=== PATIENT | female | born 1935 | race Caucasian/White ===

== ENCOUNTER → 2017-12-02 | Outpatient (CLI) | payer MEDICARE ==
[2017-12-02 10:02] LABS: PTH INTACT 35.7 pg/mL (14.0-72.0); VITAMIN D, 25-HYDROXY 21.7 ng/mL (30-100)
== END | disposition home or self-care (01) ==
LOC: LAB 08:44
PROVIDERS: Nurse Practitioner Family
DX: E83.51 Hypocalcemia (principal); E78.5 Hyperlipidemia, unspecified

== ENCOUNTER → 2018-07-18 | Outpatient (CLI) | payer MEDICARE ==
[~2018-07-18] MED LIST: LISINOPRIL10 M1 PO; LOPRESSOR25 MG PO; PRILOSEC20 M1 PO; Synthroid,Levo50 MCG PO; XARE20MG PO
--- NOTE | ~2018-07-18 | EKG ---
[place], [place] ELECTROCARDIOGRAM REPORT NAME: RANDAL CARRION UNIT #: [id number] ROOM: DOCTOR: EPIPHANY DRAFT REPORT BIRTHDATE: [birth year] [facility] Test Date: 2018-07-18 Test Time: 11:40:32 Pat Name: RANDAL CARRION Department: Room: Gender: F Fountain Dispenser: Elvia Coughlin : 1935 Requested By: PILAR SHANNON Order Number: [id number] Reading MD: Shari Vincent MD Measurements Intervals [place] Rate: 72 P: 55 MD: 154 QRS: 24 QRSD: 118 T: 11 QT: 391 QTc: 428 Interpretive Statements Sinus rhythm Incomplete right bundle branch block Electronically Signed On 07-18-2018 12:21:41 PST by Shari Vincent MD CM:EKGRPT:ELECTROCARDIOGRAM REPORT 1140 1221 PILAR SHANNON EPIPHANY DRAFT REPORT PILAR SHANNON
== END | disposition home or self-care (01) ==
LOC: CARD 11:02
DX: J44.9 Chronic obstructive pulmonary disease, unspecified (principal); E03.9 Hypothyroidism, unspecified; I10 Essential (primary) hypertension; R01.1 Cardiac murmur, unspecified; R53.83 Other fatigue

== ENCOUNTER 2018-07-21 18:24 | Inpatient (IN) | payer MEDICARE ==
[~2018-07-21] VITALS: Ht 152.4 cm; Wt 50.4 kg
[2018-07-21] VITALS (8 sets, daily range): BP systolic 148–177; BP diastolic 76–100
--- NOTE | ~2018-07-21 | EKG ---
[place], [place] ELECTROCARDIOGRAM REPORT NAME: RANDAL CARRION UNIT #: [id number] ROOM: 526 DOCTOR: MINISTERIO DRAFT REPORT BIRTHDATE: [birth year] [facility] Test Date: 2018-07-21 Test Time: 20:08:09 Pat Name: RANDAL CARRION Department: Room: 526 Gender: F Pump Tester: Arie Anthony : 1935 Requested By: AARON HYATT Order Number: [id number] Reading MD: Myrna Prescott Measurements Intervals [place] Rate: 73 P: 2 MS: 173 QRS: 5 QRSD: 116 T: 4 QT: 373 QTc: 411 Interpretive Statements Sinus rhythm Atrial premature complex Incomplete right bundle branch block Baseline wander in lead(s) V6 Compared to ECG 07/18/2018 11:40:32 Atrial premature complex(es) now present Electronically Signed On 07-28-2018 7:14:45 PST by Myrna Prescott CM:EKGRPT:ELECTROCARDIOGRAM REPORT 07 0714 TITUS GUARDADO DO and AARON MANDEL DRAFT REPORT AARON HYATT MD
--- NOTE | ~2018-07-21 | PR ---
[place], [place] PROGRESS NOTE NAME: RANDAL CARRION [facility] #: [id number] UNIT #: [id number] ROOM: 526 DOCTOR: ASHWIN QUINTERO MD BIRTHDATE: [birth year] DOS: 07/24/2018 CARDIOLOGY FOLLOWUP NOTE REASON FOR VISIT: The patient with new onset atrial fibrillation, hypertension, and valvular heart disease. HISTORY OF PRESENT ILLNESS: The patient is feeling better. Denies any chest pain, shortness of breath. No palpitation, no dizziness, no syncope, no nausea, vomiting. No bladder or bowel symptoms, no neurologic symptoms. REVIEW OF SYSTEMS: Review of 10 systems negative except as mentioned. PHYSICAL EXAMINATION: VITAL SIGNS: Blood pressure 138/59, pulse 60, respiratory rate 16, weight 50.3 kilos. GENERAL: Alert, comfortable, in no acute distress. NECK: Supple. No distended neck veins, no carotid bruit. CHEST: Symmetrical, nontender. LUNGS: Clear to auscultation bilaterally. HEART: Regular rhythm, no S3. Grade 3/6 systolic ejection murmur heard all over the precardium. No palpable thrills. ABDOMEN: Benign. Nontender. Bowel sounds normal. EXTREMITIES: Showed no edema. Distal pulses palpable. SKIN: Warm and dry. No cyanosis, no clubbing. RECTAL: Deferred. GENITOURINARY: Deferred. NEUROLOGIC: The patient is alert and oriented. No focal neurologic deficit. PSYCHIATRIC: The patient is alert with good mood and affect. Medications and labs reviewed. IMPRESSION: 1. New onset atrial fibrillation, currently sinus rhythm, CHADS2-VASc score of 4. 2. Accelerated hypertension, stable. 3. Chest pain, atypical. 4. Valvular heart disease, possible aortic stenosis based on examination. RECOMMENDATIONS: 1. Lexiscan stress test today. 2. A 2D echo is pending. 3. If the stress test, echo is unremarkable, she will be discharged home on oral anticoagulation. I would recommend either Xarelto 20 mg once daily or Eliquis 2.5 mg twice daily. The patient is agreeable. 4. If the 2D echo showed severe aortic stenosis, she will be referred to outpatient [facility]. The above treatment plan discussed with the patient and all questions were answered. [place], [place] PROGRESS NOTE NAME: RANDAL CARRION UNIT #: [id number] ROOM: 526 DOCTOR: ASHWIN QUINTERO MD BIRTHDATE: [birth year] ASHWIN QUINTERO MD CM:PNBALDO [id number] ASHWIN QUINTERO MD 07/25/18 0931 interface
--- NOTE | ~2018-07-21 | EKG ---
[place], [place] ELECTROCARDIOGRAM REPORT NAME: RANDAL CARRION UNIT #: [id number] ROOM: 526 DOCTOR: MINISTERIO DRAFT REPORT BIRTHDATE: [birth year] [facility] Test Date: 2018-07-21 Test Time: 21:43:36 Pat Name: RANDAL CARRION Department: Room: 526 Gender: F Thermocouple Tester: Arie Anthony : 1935 Requested By: TITUS GUARDADO Order Number: [id number] Reading MD: Myrna Prescott Measurements Intervals [place] Rate: 75 P: 38 CT: 180 QRS: 32 QRSD: 115 T: 19 QT: 360 QTc: 402 Interpretive Statements Sinus rhythm Incomplete right bundle branch block Compared to ECG 07/18/2018 11:40:32 No significant changes Electronically Signed On 07-28-2018 7:27:54 PST by Myrna Prescott CM:EKGRPT:ELECTROCARDIOGRAM REPORT 42 0727 TITUS GUARDADO DO and AARON HYATT MD EPIPHANY DRAFT REPORT TITUS GUARDADO DO
--- NOTE | ~2018-07-21 | EKG ---
[place], [place] ELECTROCARDIOGRAM REPORT NAME: RANDAL CARRION UNIT #: [id number] ROOM: 526 DOCTOR: MINISTERIO DRAFT REPORT BIRTHDATE: [birth year] [facility] Test Date: 2018-07-21 Test Time: 18:25:30 Pat Name: RANDAL CARRION Department: Room: 526 Gender: F Developing Machine Tender: Arie Anthony : 1935 Requested By: TITUS GUARDADO Order Number: [id number] Reading MD: Myrna Prescott Measurements Intervals [place] Rate: 163 P: WI: QRS: 25 QRSD: 105 T: -42 QT: 271 QTc: 447 Interpretive Statements Atrial fibrillation with rapid V-rate Abnormal R-wave progression, early transition Repolarization abnormality, prob rate related Compared to ECG 07/18/2018 11:40:32 Early repolarization now present Sinus rhythm no longer present Incomplete right bundle-branch block no longer present Electronically Signed On 07-28-2018 7:13:52 PST by Myrna Prescott CM:EKGRPT:ELECTROCARDIOGRAM REPORT 1825 0713 TITUS GRIMM DRAFT REPORT TITUS GUARDADO DO
--- NOTE | ~2018-07-21 | CON ---
[place], [place] REPORT OF CONSULTATION [id number] UN[facility] #: [id number] ROOM: 526 DOCTOR: ASHWIN QUINTERO MD BIRTHDATE: [birth year] DOS: 07/22/2018 REASON FOR CONSULT: Atrial fibrillation and chest pain. HISTORY OF PRESENT ILLNESS: The patient is an 82-year-old patient with history of hypothyroidism, presented to the Emergency Room for heart fluttering as well as some discomfort in the chest area as well as short of breath. This happened while she was walking in the driveway to get her mail. She denies any associated dizziness or syncope or chest pain. She describes there is tightness and also noted some discomfort in her jaw area. She complained of occasional heart fluttering for the past 6-7 years. Again, no associated dizziness or syncope. These symptoms last a few seconds, but for the past 1 month she is having more frequent fluttering which lasted longer. She was found to be in atrial fibrillation and rapid ventricular rate and she was treated intravenously with beta-doretha and the patient has converted to sinus rhythm. She returned to the hospital and Cardiology consulted because of her atrial fibrillation and also chest pain. At the time of examination, the patient is alert, oriented. Denies any chest pain, shortness of breath. No palpitation or dizziness. No PND or orthopnea. No nausea, vomiting, or diarrhea. No headaches. No tingling, numbness or weakness. No bladder or bowel symptoms. REVIEW OF SYSTEMS: Review of the 10 systems negative except as mentioned above. PAST MEDICAL HISTORY: Hypothyroidism and history of heart murmur. PAST SURGICAL HISTORY: History of hemorrhoidectomy and breast biopsy. SOCIAL HISTORY: The patient does not drink or use illicit drugs. She quit smoking long time ago. FAMILY HISTORY: Father and mother . ALLERGIES: No known drug allergies. HOME MEDICATIONS: Reviewed. PHYSICAL EXAMINATION: VITAL SIGNS: Blood pressure 170/80, pulse 73, respirations 16. GENERAL: The patient is alert, comfort, no acute distress. HEAD AND NECK: Pupils round, equal. No jaundice. Tongue was moist and pharynx was clear. NECK: Supple, no distended neck veins, no carotid bruit. CHEST: Symmetrical, nontender. LUNGS: Clear to auscultation bilaterally. HEART: Regular rhythm, no S3 and grade 3/6 systolic ejection murmur heard all over the precardium. No palpable thrills. ABDOMEN: Benign, nontender. Bowel sounds normal. EXTREMITIES: Showed no edema. Distal pulses palpable. SKIN: Warm and dry. No cyanosis, no clubbing. RECTAL: Deferred. [place], [place] REPORT OF CONSULTATION NAME: RANDAL CARRION UNIT #: [id number] ROOM: 526 DOCTOR: ASHWIN QUINTERO MD BIRTHDATE: [birth year] GENITOURINARY: Deferred. PSYCHIATRIC: The patient is alert, oriented with good mood and affect. REVIEW OF THE DIAGNOSTIC TESTS: EKG, rhythm strips and labs reviewed. Pertinent labs include cardiac troponins at 0.038, 0.059, 0.068, 0.048. White cell count 7.4 thousand, hemoglobin 14, platelet 137,000. Potassium 3.8, BUN 16, creatinine 0.75, magnesium 2.1. IMPRESSION: 1. New onset atrial fibrillation with rapid ventricular rate, the patient currently in sinus rhythm, CHADS2-VASc score at least 3 possibly 4 with hypertension. Risks, benefits of the oral anticoagulation discussed and the patient agreed to take oral anticoagulation. Continue Lovenox for now and based on her echo and also a Lexiscan stress test on Tuesday. We will start oral anticoagulation. 2. Chest pain, atypical. 3. Borderline elevation of troponin, likely due to demand ischemia from her tachycardia. 4. Heart murmur, possible aortic stenosis. A 2D echo was ordered and pending. 5. New onset hypertension, start low dose beta-doretha, metoprolol and watch her blood pressure and heart rates and adjust the medications as needed. The above treatment and plan was discussed with the patient and her family member who is at bedside and all questions answered. Plan is 2D echo and Lexiscan stress on Tuesday and based on that the oral anticoagulation will be initiated. If the stress test is abnormal, then she will be transferred to [facility] for cardiac catheterization. If the 2D echo showed severe significant aortic stenosis, then she will be referred to [facility] [place] [facility] clinic as outpatient. ASHWIN QUINTERO MD CM:CONSTR:REPORT OF CONSULTATION 01 09/05/18 0651 interface
--- NOTE | ~2018-07-21 | PR ---
[place], [place] PROGRESS NOTE NAME[facility]ION [id number] UNIT #: [id number] ROOM: 526 DOCTOR: ASHWIN QUINTERO MD BIRTHDATE: [birth year] DOS: 07/23/2018 CARDIOLOGY FOLLOWUP VISIT NOTE REASON FOR VISIT: Atrial fibrillation and hypertension and heart murmur. SUBJECTIVE: The patient is feeling better. Denies any chest pain or palpitations. Her breathing is much better. No PND, no orthopnea. No nausea, vomiting, diarrhea. No bladder or bowel symptoms, no neurologic symptoms. REVIEW OF SYSTEMS: Review of the 10-system negative except as mentioned above. RHYTHM STRIPS: The patient is in sinus rhythm. PHYSICAL EXAMINATION: VITAL SIGNS: Blood pressure 110/49, pulse 58, respirations 17, weight 50.7 kilos. GENERAL: Alert and comfortable, in no acute distress. HEENT: Pupils are round and equal. No jaundice. Tongue was moist and pharynx was clear. NECK: Supple, no distended neck veins, no carotid bruit. CHEST: Symmetrical, nontender. LUNGS: Clear to auscultation bilaterally. HEART: Regular rate and rhythm, no S3. Grade 3/6 systolic ejection murmur heard all over the precardium. No palpable thrills. ABDOMEN: Benign, nontender. Bowel sounds normal. EXTREMITIES: Showed trace edema. Distal pulses palpable. SKIN: Warm and dry. No cyanosis, no clubbing. RECTAL: Deferred. GENITOURINARY: Deferred. MEDICATIONS AND LABORATORIES: Reviewed. IMPRESSION: 1. New onset atrial fibrillation, currently sinus rhythm. CHADS2-VASc score of at least 3, possibly 4 with hypertension. 2. Significant heart murmur, possible aortic stenosis. 3. Atypical chest pain, myocardial infarction ruled out. 4. Labile hypertension. RECOMMENDATIONS: 1. Continue current medication as per 2D echo tomorrow. Check her LV function and valvular function to rule out thrombus. 2. Lexiscan stress test tomorrow to rule out ischemia. 3. A 2D echo unremarkable. If Lexiscan stress test negative, she can be discharged home tomorrow on oral anticoagulation, possibly I would start Eliquis. 4. If the stress test showed ischemia, then she will require cardiac catheterization, which will be performed on Tuesday at [facility]. 5. If she has severe valvular heart disease, then she will be referred to [place], [place] PROGRESS NOTE NAME: RANDAL CARRION UNIT #: [id number] ROOM: 526 DOCTOR: LEON DIEGO,ASHWIN BIRTHDATE: [birth year] [facility] Above treatment plan was discussed with the patient as well as her son, who is at bedside and all questions were answered. ASHWIN QUINTERO MD CM:PNTRANS [id number] ASHWIN QUINTERO MD 09/06/18 0746 interface
--- NOTE | ~2018-07-21 | EKG ---
[place], [place] ELECTROCARDIOGRAM REPORT NAME: RANDAL CARRION UNIT #: [id number] ROOM: 526 DOCTOR: MINISTERIO DRAFT REPORT BIRTHDATE: [birth year] [facility] Test Date: 2018-07-22 Test Time: 00:18:46 Pat Name: RANDAL CARRION Department: Room: 526 Gender: F Bank Messenger: Arie Anthony : 1935 Requested By: TITUS GUARDADO Order Number: [id number] Reading MD: Myrna Prescott Measurements Intervals [place] Rate: 68 P: 43 WA: 185 QRS: 31 QRSD: 118 T: 20 QT: 392 QTc: 417 Interpretive Statements Sinus rhythm Ventricular premature complex Incomplete right bundle branch block Compared to ECG 07/18/2018 11:40:32 Ventricular premature complex(es) now present Electronically Signed On 07-28-2018 11:49:19 PST by Myrna Prescott CM:EKGRPT:ELECTROCARDIOGRAM REPORT 0018 1149 TITUS GRIMM DRAFT REPORT TITUS GUARDADO DO
--- NOTE | ~2018-07-21 | ST ---
[place], [place] EXERCISE STRESS TEST REPORT NAME: RANDAL CARRION [facility] #: [id number] UNIT #: [id number] ROOM: 526 DOCTOR: LEON DIEGO,ASHWIN BIRTHDATE: [birth year] DOS: 07/24/2018 REASON FOR TEST: The patient ____ atrial fibrillation, hypertension, and valvular heart disease. PHYSICAL EXAMINATION NECK: Supple. LUNGS: Clear anteriorly. HEART: Regular rhythm, grade 3/6 systolic murmur. EXTREMITIES: Showed no edema. PROTOCOL: Lexiscan protocol. Maximum heart rate 96. Peak blood pressure 134/70. SYMPTOMS: The patient is chest pain free. EKG: Resting EKG showed sinus rhythm. Stress EKG showed no ischemia, no arrhythmias. CONCLUSION: Clinically, the patient is chest pain free. EKG nonischemic. POST-STRESS COMPLICATIONS: None. The patient received a total of 0.4 mg of Lexiscan. ASHWIN QUINTERO MD CM:STRESS:EXERCISE STRESS TEST REPORT [id number] 0359 ASHWIN QUINTERO MD
[2018-07-21 18:53] LABS: BASO # 0.1 10*3/uL (0.0-0.1); BASO % 0.9 % (0.0-1.0); EOS # 0.1 10*3/uL (0.0-0.4); EOS % 0.8 % (1.0-4.0); HEMATOCRIT 45.5 % (37.0-47.0); HEMOGLOBIN 15.6 g/dl (12.0-16.0); LYMPH # 2.2 10*3/uL (1.3-4.4); LYMPH % 24.2 % (27.0-41.0); MEAN CELL VOLUME 88.3 fl (81.0-99.0); MEAN CORPUSCULAR HGB 30.3 pg (27.0-31.0); MEAN CORPUSCULAR HGB CONC 34.3 g/dl (33.0-37.0); MEAN PLATELET VOLUME 12.1 fl (9.6-12.3); MONO # 0.9 10*3/uL (0.1-1.0); MONO % 10.4 % (3.0-9.0); NEUT # 5.6 10*3/uL (2.3-7.9); NEUT % 62.9 % (47.0-73.0); PLATELET COUNT AUTOMATED 202 10*3/uL (130-400); RED BLOOD COUNT 5.15 10*6/uL (4.10-5.10); RED CELL DISTRI WIDTH 13.1 % (0-14.5); WHITE BLOOD COUNT 8.9 10*3/uL (4.8-10.8)
--- NOTE | 2018-07-21 18:56 | NUR ---
DURING SLOW IV PUSH OF 2.5 MG IV LOPRESSOR,PTS HEARTRATE DROPPED GRADUALLY FROM 140 TO 100 THEN QUICKLY TO 40. IV LOPRESSOR PUSH STOPPED IMMEDIATELY. ONLY 1.5 MG IV LOPRESSOR WAS INJECTED TOTAL BEFORE DISCONTIUATION. DR GUARDADO MADE AWARE OF THIS. PT ALERT/ORIENTED X3.MONITOR IS NOW AFIB 80'S. NO PREVIOUS HX OF AFIB PER PT AND DAUGHTER---RILEY RIVERA RN
[2018-07-21 19:38] LABS: ACT PARTIAL THROMBO TIME 21.2 SECONDS (20.8-31.5)
[2018-07-21 19:39] LABS: ALBUMIN 3.5 gm/dl (3.1-4.5); ALKALINE PHOSPHATASE 96 U/L (45-117); BUN 12 mg/dl (7-24); CHLORIDE 105 mmol/L (98-107); CREATININE 0.72 mg/dL (0.55-1.02); POTASSIUM 3.6 mmol/L (3.5-5.1); SGOT/AST 19 IU/L (3-35); SGPT/ALT 19 U/L (12-78); SODIUM 135 mmol/L (136-145); TOTAL PROTEIN 7.2 gm/dL (6.4-8.2)
[2018-07-21 19:40] LABS: LIPASE 197 U/L (73-393); TROPONIN I 0.038 ng/ml (<0.045)
--- NOTE | 2018-07-21 21:40 | NUR ---
A 82, admitted to ICCU, under the services of JAMISON Tariq DO with a diagnosis of CHEST PAIN HYPERTENSIVE EMERGENCY NEW ONSET AFIB. Chief complaint is CHEST PAIN. Patient arrived via stretcher from ER. Monitor applied. Initial assessment completed. Vital signs taken and recorded. JAMISON TARIQ DO notified of admission to the unit. Orders received. See assessment for past medical history, medications and allergies. Patient and/or family oriented to unit. [facility] ICCU visitation policy reviewed. Clothing/patient valuable form completed. JACQUELYN MORALES
[2018-07-21] MEDS ORDERED: PRILOSEC20 M1 PO (21:56)
[2018-07-21] MEDS ORDERED: Synthroid,Levo50 MCG PO (21:57)
--- NOTE | 2018-07-21 22:07 | NUR ---
CONSULT CALLED TO DOCTOR JOSE RAFAEL HE WAS INFORMED OF ELEVATED TROPONINS AND HE ASKED IF PATIENT WAS ON LOVENOX 40 DAILY HE SAID OK WILL SEE TOMORROW. JOSE RAFAEL WAS INFORMED THAT PATIENT HAS CONVERTED TO NSR AND IS CURRENTLY 80 AT THIS TIME PATIENT DENIES CP CURRENTLY.
--- NOTE | 2018-07-21 22:45 | NUR ---
HOME MEDS UP TO DATE REVIEWED WITH THE PATIENT.
[2018-07-22] VITALS: BP 120/68
[2018-07-22 04:00] VITALS: BP 116/55
[2018-07-22 04:33] LABS: BASO # 0.1 10*3/uL (0.0-0.1); BASO % 0.9 % (0.0-1.0); EOS # 0.1 10*3/uL (0.0-0.4); EOS % 1.3 % (1.0-4.0); HEMATOCRIT 43.1 % (37.0-47.0); HEMOGLOBIN 14.6 g/dl (12.0-16.0); LYMPH % 26.9 % (27.0-41.0); MEAN CELL VOLUME 90.2 fl (81.0-99.0); MEAN CORPUSCULAR HGB 30.5 pg (27.0-31.0); MEAN CORPUSCULAR HGB CONC 33.9 g/dl (33.0-37.0); MEAN PLATELET VOLUME 11.5 fl (9.6-12.3); MONO # 0.8 10*3/uL (0.1-1.0); MONO % 10.9 % (3.0-9.0); NEUT # 4.4 10*3/uL (2.3-7.9); NEUT % 59.5 % (47.0-73.0); PLATELET COUNT AUTOMATED 173 10*3/uL (130-400); RED BLOOD COUNT 4.78 10*6/uL (4.10-5.10); RED CELL DISTRI WIDTH 13.1 % (0-14.5); WHITE BLOOD COUNT 7.4 10*3/uL (4.8-10.8)
[2018-07-22 05:05] LABS: ALBUMIN 3.3 gm/dl (3.1-4.5); ALKALINE PHOSPHATASE 91 U/L (45-117); BUN 16 mg/dl (7-24); CHLORIDE 105 mmol/L (98-107); CHOLESTEROL 197 mg/dL (<200); CREATININE 0.75 mg/dL (0.55-1.02); FREE T4 1.27 ng/dl (0.76-1.46); HDL CHOLESTEROL 84 mg/dl (40-60); LDL CHOLESTEROL 99 mg/dL (9-159); PHOSPHOROUS 3.7 mg/dL (2.5-4.9); POTASSIUM 3.8 mmol/L (3.5-5.1); SGOT/AST 19 IU/L (3-35); SGPT/ALT 19 U/L (12-78); SODIUM 137 mmol/L (136-145); TOTAL PROTEIN 6.6 gm/dL (6.4-8.2); TRIGLYCERIDES 68 mg/dl (<150); VLDL CHOLESTEROL 14 mg/dL (6-40)
[2018-07-22 08:00] VITALS: BP 156/71
--- NOTE | 2018-07-22 08:00 | NUR ---
RESTING IN BED, DENIES ANY COMPLAINTS OF CHEST PAIN OR SHORTNESS OF BREATH. PULSE OX 97% ON ROOM AIR. LUNGS CLEAR BILATERALLY. NO EDEMA NOTED. HEP LOCK INTACT TO RAN AND BLANCHE.
[2018-07-22 12:00] VITALS: BP 170/86
--- NOTE | 2018-07-22 14:06 | NUR ---
TRANSFERRED TO ROOM 526 VIA BED. REPORT GIVEN TO RN
[2018-07-22 16:00] VITALS: BP 135/65
[2018-07-22 20:00] VITALS: BP 108/58; BP 112/64
--- NOTE | 2018-07-22 21:01 | NUR ---
NOTIFIED DR. PIMENTEL AT THIS TIME THAT PATIENT HAD A "FUNNY FEELING" IN HER CHEST FOLLOWED BY A QUICK FEELING OF NUMBNESS IN HER LEFT HAND THAT QUICKLY WENT AWAY. PATIENT STILL NORMAL SINUS RHYTHM IN THE 70'S, WAS IN 60'S WHILE SLEEPING. CALL LIGHT WITHIN REACH, WILL MONITOR
--- NOTE | 2018-07-22 21:30 | NUR ---
PRN RESTORIL GIVEN FOR PT COMPLAINTS OF ANXIETY AND SLEEPLESSNESS. STATES SHES NOT USED TO BEING SICK. CALL LIGHT WITHIN REACH, WILL MONITOR
[2018-07-23] VITALS: BP 110/68
--- NOTE | 2018-07-23 07:26 | NUR ---
PT SITTING UP IN BED. NO DISTRESS NOTED WILL MONITOR
[2018-07-23 08:00] VITALS: BP 158/64
[2018-07-23 12:00] VITALS: BP 110/49
[2018-07-23 16:00] VITALS: BP 100/48
[2018-07-23 20:00] VITALS: BP 105/44
--- NOTE | 2018-07-23 21:15 | NUR ---
MEDICATED WITH RESTORIL PER PRN ORDER FOR C/O INSOMNIA.
[2018-07-24] VITALS: BP 138/59
--- NOTE | 2018-07-24 00:35 | NUR ---
PT RESTING IN BED WITH EYES CLOSED, AWAKENS EASILY. RESP-EASY AND REGULAR. NO C/O AT THIS TIME. CALL LIGHT IN REACH. SEE SHIFT ASSESSMENT.
--- NOTE | 2018-07-24 04:00 | NUR ---
RESTING IN BED WITH EYES CLOSED. RESP-EASY AND REGULAR. CALL LIGHT IN REACH.
--- NOTE | 2018-07-24 05:15 | NUR ---
SLEEPING IN BED, AWAKENS EASILY. TOLERATED ROUTINE MED WITH SIP OF WATER. NO C/O AT THIS TIME. CALL LIGHT IN REACH.
--- NOTE | 2018-07-24 09:45 | NUR ---
case management was informed that patient may go home on xeralto 20mg daily, called [facility] pharmacy, spoke to pharmacist. he will check on cost and any copay for patient and call case management with details.
--- NOTE | 2018-07-24 10:00 | NUR ---
SENT TO [facility] TESTING FOR STRESS TEST
--- NOTE | 2018-07-24 10:20 | NUR ---
INFORMED SIGNED CONSENT OBTAINED FOR LEXISCAN STRESS TEST WITH DR QUINTERO. RESTING EKG NSR HR 67 INCOMPLETE RBBB. PULSE OX 99% LUNGS CLEAR. PT COMPLETED ONE MINUTE OF A LEXISCAN PROTOCOL WITH PT RECEIVING LEXISCAN 0.4MG IV OVER 10 SECONDS[address] NO ARRHYTHMIAS OR ST CHANGES NOTED. PT C/O FEELING DIZZY WITH INJECTION. LAST RECOVERY HR OF 93 BP 130/64. PT IN STABLE CONDITION, AWAITING NUCLEAR IMAGES.
--- NOTE | 2018-07-24 10:41 | NUR ---
SPOKE WITH VIKTORIA FROM [facility], STATES PT HAS NO INSURANCE CARD LISTED AND THAT XERALTO WOULD BE AROUND 500.00 DOLLARS. HOSPITALIST NURSE DIRECTOR NOTIFIED.
--- NOTE | 2018-07-24 11:29 | NUR ---
Manager Of Pharmacy in to talk to patient. Patient states lives at HOME with . There are NO steps in the home. Physician: Jennifer SHANNON Pharmacy: [facility] [place] health services: NONE Patient's level of ADLs: INDEPENDENT Patient has working utilities: YES DME: NONE Follow-up physician's appointment after d/c: WILL BE MADE BY HOSPITALIST NURSE DIRECTOR ON DISCHARGE Does patient want to access PORTAL?: NO Discharge plan PT LIVES AT HOME WITH AND IS NORMALLY INDEPENDENT IN CARE. DAUGHTER IN ROOM AND STATES HER MOTHER IS VERY INDEPENDENT AND ACTIVE.. PT IS HAVING A STRESS TEST TODAY AND DAUGHTER STATES THE DOCTOR TOLD THEM THAT PT WOULD EITHER BE DISCHARGED HOME OR GO TO [facility] ON STRESS TEST. WILL CONTINUE TO FOLLOW. AISLINN KNOX
[2018-07-24 12:00] VITALS: BP 143/63
--- NOTE | 2018-07-24 14:52 | NUR ---
notified cardiology of issue with xarelto and eliquis, dr. maier would like xarelto 20mg daily
[2018-07-24] MEDS ORDERED: XARE20MG PO (15:08)
[2018-07-24] MEDS ORDERED: LISINOPRIL10 M1 PO (15:08)
[2018-07-24] MEDS ORDERED: LOPRESSOR25 MG PO (15:08)
[2018-07-24 16:00] VITALS: BP 152/64
--- NOTE | 2018-07-24 16:54 | NUR ---
Discharge instructions reviewed with patient/family. Patient receptive and verbalizes understanding. Follow-up care arranged AND UNDERSTOOD TO CALL FOR APPOINTMENT WITH PRIMARY CARE, UNDERSTANDS [facility] FOLLOW UP AND TO FOLLOW UP WITH CARDIOLOGY, PER DR. QUINTERO HIS OFFICE WILL CALL WITH A FOLLOW UP APPOINTMENT. Written instructions given to patient/family. IV REMOVED, TELE REMOVED. PT DISCHARGED VIA WHEELCHAIR BEV MANZANARES
[2018-10-25] MEDS ORDERED: LEVOTHYROXINE50 MCG PO (13:24)
[2018-10-26] MEDS ORDERED: ESCITALOPRAM OX10 MG PO (11:52)
== END 2018-07-24 16:54 | disposition home or self-care (01) | DRG 309 ==
LOC: ED 18:24 → 5E 20:21 → EDHOLD 20:21 → 5E 21:01 → ICCU 21:12 → 5E 07-22 13:59
PROVIDERS: Emergency Medicine; Family Medicine; ADMIT Internal Medicine
PROC: 3E073KZ Introduction of Other Diagnostic Substance into Coronary Artery, Percutaneous Approach (ICD-10-PCS; principal; 2018-07-24)
PROC: 4A02XM4 Measurement of Cardiac Total Activity, External Approach (ICD-10-PCS; principal; 2018-07-24)
DX: I48.91 Unspecified atrial fibrillation (principal); R65.10 Systemic inflammatory response syndrome (SIRS) of non-infectious origin without acute organ dysfunction; E87.1 Hypo-osmolality and hyponatremia; E44.1 Mild protein-calorie malnutrition; I08.0 Rheumatic disorders of both mitral and aortic valves; R73.9 Hyperglycemia, unspecified; R74.8 Abnormal levels of other serum enzymes; R00.1 Bradycardia, unspecified; E03.9 Hypothyroidism, unspecified; I10 Essential (primary) hypertension; Z87.891 Personal history of nicotine dependence; Z79.899 Other long term (current) drug therapy; Z68.21 Body mass index [BMI] 21.0-21.9, adult

== ENCOUNTER 2018-08-23 10:47 | Emergency (ER) | payer MEDICARE ==
[~2018-08-23] VITALS: Ht 144.7 cm; Wt 49.9 kg
--- NOTE | ~2018-08-23 | EKG ---
[place], [place] ELECTROCARDIOGRAM REPORT NAME: RANDAL CARRION UNIT #: [id number] ROOM: DOCTOR: MINISTERIO DRAFT REPORT BIRTHDATE: [birth year] [facility] Test Date: 2018-08-23 Test Time: 10:56:28 Pat Name: RANDAL CARRION Department: Room: Gender: F Bariatric Program Coordinator: : 1935 Requested By: TITUS GUARDADO Order Number: [id number] Reading MD: Gabo Vuong MD Measurements Intervals [place] Rate: 75 P: 13 VT: 171 QRS: 10 QRSD: 116 T: 13 QT: 394 QTc: 441 Interpretive Statements Sinus rhythm Incomplete right bundle branch block Compared to ECG 07/22/2018 00:18:46 Ventricular premature complex(es) no longer present Electronically Signed On 08-25-2018 13:53:11 PDT by Gabo Vuong MD CM:EKGRPT:ELECTROCARDIOGRAM REPORT [id number] 1353 TITUS GRIMM DRAFT REPORT TITUS GUARDADO DO
[2018-08-23 11:23] LABS: BASO # 0.1 10*3/uL (0.0-0.1); BASO % 0.8 % (0.0-1.0); EOS # 0.1 10*3/uL (0.0-0.4); EOS % 0.5 % (1.0-4.0); HEMATOCRIT 39.9 % (37.0-47.0); HEMOGLOBIN 13.7 g/dl (12.0-16.0); LYMPH # 1.1 10*3/uL (1.3-4.4); LYMPH % 11.9 % (27.0-41.0); MEAN CELL VOLUME 88.1 fl (81.0-99.0); MEAN CORPUSCULAR HGB 30.2 pg (27.0-31.0); MEAN CORPUSCULAR HGB CONC 34.3 g/dl (33.0-37.0); MEAN PLATELET VOLUME 10.8 fl (9.6-12.3); MONO # 0.9 10*3/uL (0.1-1.0); MONO % 9.3 % (3.0-9.0); NEUT # 7.3 10*3/uL (2.3-7.9); NEUT % 76.6 % (47.0-73.0); PLATELET COUNT AUTOMATED 208 10*3/uL (130-400); RED BLOOD COUNT 4.53 10*6/uL (4.10-5.10); RED CELL DISTRI WIDTH 12.9 % (0-14.5); WHITE BLOOD COUNT 9.5 10*3/uL (4.8-10.8)
[2018-08-23 11:30] LABS: ACT PARTIAL THROMBO TIME 24.2 SECONDS (20.8-31.5)
[2018-08-23 11:59] LABS: ALBUMIN 3.2 gm/dl (3.1-4.5); ALKALINE PHOSPHATASE 116 U/L (45-117); BUN 14 mg/dl (7-24); CHLORIDE 97 mmol/L (98-107); CREATININE 0.63 mg/dL (0.55-1.02); LIPASE 153 U/L (73-393); POTASSIUM 4.1 mmol/L (3.5-5.1); SGOT/AST 18 IU/L (3-35); SGPT/ALT 16 U/L (12-78); SODIUM 129 mmol/L (136-145); TOTAL PROTEIN 6.8 gm/dL (6.4-8.2); TROPONIN I 0.022 ng/ml (<0.045)
[2018-10-25] MEDS ORDERED: LEVOTHYROXINE50 MCG PO (13:24)
[2018-10-26] MEDS ORDERED: ESCITALOPRAM OX10 MG PO (11:52)
== END 2018-08-23 15:30 | disposition short-term general hospital (02) ==
LOC: ED 10:47
PROVIDERS: Emergency Medicine
DX: G45.9 Transient cerebral ischemic attack, unspecified (principal); E03.9 Hypothyroidism, unspecified; Z87.891 Personal history of nicotine dependence

== ENCOUNTER → 2018-10-10 | Outpatient (CLI) | payer MEDICARE ==
[~2018-10-10] MED LIST changes: +ESCITALOPRAM OX10 MG PO; +HYDROCODONE-AC1 EAC1 PO; +LEVOTHYROXINE50 MCG PO; +NORVASC5 MG PO; +TRAMADOL HCL50 MG PO; +TYLENOL EXTRA500 MG PO
[2018-10-10 14:29] LABS: BASO # 0.1 10*3/uL (0.0-0.1); EOS # 0.1 10*3/uL (0.0-0.4); EOS % 0.7 % (1.0-4.0); HEMATOCRIT 41.1 % (37.0-47.0); HEMOGLOBIN 13.4 g/dl (12.0-16.0); LYMPH # 1.9 10*3/uL (1.3-4.4); LYMPH % 23.6 % (27.0-41.0); MEAN CELL VOLUME 89.2 fl (81.0-99.0); MEAN CORPUSCULAR HGB 29.1 pg (27.0-31.0); MEAN CORPUSCULAR HGB CONC 32.6 g/dl (33.0-37.0); MEAN PLATELET VOLUME 11.5 fl (9.6-12.3); MONO # 0.9 10*3/uL (0.1-1.0); MONO % 11.5 % (3.0-9.0); NEUT # 5.1 10*3/uL (2.3-7.9); NEUT % 62.2 % (47.0-73.0); PLATELET COUNT AUTOMATED 164 10*3/uL (130-400); RED BLOOD COUNT 4.61 10*6/uL (4.10-5.10); RED CELL DISTRI WIDTH 13.9 % (0-14.5); WHITE BLOOD COUNT 8.2 10*3/uL (4.8-10.8)
[2018-10-10 14:57] LABS: ALBUMIN 3.6 gm/dl (3.1-4.5); CREATININE 1.29 mg/dL (0.55-1.02); POTASSIUM 4.5 mmol/L (3.5-5.1); TOTAL PROTEIN 7.6 gm/dL (6.4-8.2)
[2018-10-10 15:04] LABS: THYROID STIM HORMONE (HS) 3.64 uIU/ml (0.358-4.75)
== END | disposition home or self-care (01) ==
LOC: LAB 13:19
PROVIDERS: Internal Medicine Cardiovascular Disease
DX: R53.83 Other fatigue (principal); R42 Dizziness and giddiness

== ENCOUNTER 2018-12-12 10:33 | Inpatient (IN) | payer MEDICARE ==
[~2018-12-12] VITALS: Ht 144.8 cm; Wt 52.2 kg
[~2018-12-12 10:33] MED LIST changes: -HYDROCODONE-AC1 EAC1 PO; -NORVASC5 MG PO; -TRAMADOL HCL50 MG PO; -TYLENOL EXTRA500 MG PO
[2018-12-12 10:34] VITALS: BP 156/68
[2018-12-12 11:07] LABS: BILIRUBIN 1+ (NEGATIVE); BLOOD NEGATIVE (NEGATIVE); CLARITY SL CLOUDY (CLEAR); COLOR YELLOW (YELLOW); GLUCOSE NEGATIVE (NEGATIVE); KETONE 1+ (NEGATIVE); LEUKO ESTERASE NEGATIVE (NEGATIVE); NITRITE NEGATIVE (NEGATIVE); SPECIFIC GRAVITY 1.025 (1.005-1.030)
[2018-12-12 11:22] LABS: BACTERIA 1+
[2018-12-12 12:00] VITALS: BP 152/58
[2018-12-12 12:37] LABS: BASO # 0.1 10*3/uL (0.0-0.1); BASO % 0.5 % (0.0-1.0); EOS % 0.2 % (1.0-4.0); HEMATOCRIT 37.5 % (37.0-47.0); HEMOGLOBIN 12.1 g/dl (12.0-16.0); LYMPH # 1.1 10*3/uL (1.3-4.4); LYMPH % 10.5 % (27.0-41.0); MEAN CORPUSCULAR HGB 28.4 pg (27.0-31.0); MEAN CORPUSCULAR HGB CONC 32.3 g/dl (33.0-37.0); MEAN PLATELET VOLUME 10.7 fl (9.6-12.3); MONO # 0.9 10*3/uL (0.1-1.0); MONO % 8.8 % (3.0-9.0); NEUT # 7.9 10*3/uL (2.3-7.9); NEUT % 79.2 % (47.0-73.0); PLATELET COUNT AUTOMATED 214 10*3/uL (130-400); RED BLOOD COUNT 4.26 10*6/uL (4.10-5.10); RED CELL DISTRI WIDTH 14.2 % (0-14.5)
[2018-12-12 12:52] LABS: ALBUMIN 3.4 gm/dl (3.1-4.5); ALKALINE PHOSPHATASE 180 U/L (45-117); BUN 20 mg/dl (7-24); CHLORIDE 101 mmol/L (98-107); CREATININE 0.83 mg/dL (0.55-1.02); POTASSIUM 3.6 mmol/L (3.5-5.1); SGOT/AST 25 IU/L (3-35); SGPT/ALT 21 U/L (12-78); SODIUM 133 mmol/L (136-145)
[2018-12-12 14:02] VITALS: BP 176/69
--- NOTE | 2018-12-12 14:10 | NUR ---
Time: 1409 A 83 year old FEMALE admitted to 5E under services of JAMISON TARIQ DO. Pt. arrived via stretcher from ER. Chief complaint: BACK PAIN . VASQUEZ PATRICK
[2018-12-12] MEDS ORDERED: PRILOSEC20 M1 PO (14:25)
--- NOTE | 2018-12-12 15:38 | NUR ---
PT MEDICATED WITH NORCO AND FLEXERIL FOR C/O BACK PAIN PT RATES PAIN 01/20 WILL MONITOR
--- NOTE | 2018-12-12 16:59 | NUR ---
PT RESTING IN BED, EYES CLOSED. NORCO AND FLEXERIL APPEAR EFFECTIVE,. WILL MONITOR
[2018-12-12 20:00] VITALS: BP 157/69
--- NOTE | 2018-12-12 20:10 | NUR ---
RESTING IN BED WITH EYES CLOSED, AWAKENS EASILY. RESP-EASY AND REGULAR. NO C/O AT THIS TIME. CALL LIGHT IN REACH. SEE SHIFT ASSESSMENT.
--- NOTE | 2018-12-12 22:00 | NUR ---
TOLERATED ROUTINE MED WITH NO PROBLEM. C/O BACK PAIN ,RATES PAIN 5 ON PAIN SCALE 0-10. MEDICATED WITH NORCO PO PER PRN ORDER, SEE EMAR. CALL LIGHT IN REACH.
--- NOTE | 2018-12-12 22:35 | NUR ---
STATES PAIN MEDICATION AND OINTMENT IS HELPING SOME. CALL LIGHT IN REACH. BED ALARM ON.
[2018-12-13] VITALS: BP 135/59
--- NOTE | 2018-12-13 00:20 | NUR ---
PT RESTING IN BED WITH EYES CLOSED. RESP-EASY AND REGULAR. NO C/O AT THIS TIME. CALL LIGHT IN REACH. SEE SHIFT ASSESSMENT.
--- NOTE | 2018-12-13 04:00 | NUR ---
SLEEPING IN BED. RESP-EASY AND REGULAR. CALL LIGHT IN REACH.
--- NOTE | 2018-12-13 06:00 | NUR ---
SLEEPING IN BED. RESP-EASY AND REGULAR. CALL LIGHT IN REACH.
--- NOTE | 2018-12-13 07:23 | NUR ---
PT RESTING IN BED AT THIS TIME WITH COMPLAINTS OF PAIN IN THE LEFT LOWER BACK/HIP. SHE STATES IT IS AN 8/10 WITH MOVEMENT AND THAT IF SHE LAYS STILL THE PAIN IS BARELY THERE. PRN ORDER FOR NORCO GIVEN AT THIS TIME. WILL MONITOR FOR EFFECTIVENESS OF MEDICATION. PT DENIES ANY OTHER NEEDS AT THIS TIME
[2018-12-13 07:27] LABS: BASO # 0.1 10*3/uL (0.0-0.1); EOS # 0.1 10*3/uL (0.0-0.4); EOS % 0.7 % (1.0-4.0); HEMATOCRIT 36.4 % (37.0-47.0); HEMOGLOBIN 11.8 g/dl (12.0-16.0); LYMPH # 1.1 10*3/uL (1.3-4.4); MEAN CELL VOLUME 89.4 fl (81.0-99.0); MEAN CORPUSCULAR HGB CONC 32.4 g/dl (33.0-37.0); MEAN PLATELET VOLUME 11.2 fl (9.6-12.3); MONO # 0.8 10*3/uL (0.1-1.0); MONO % 11.4 % (3.0-9.0); NEUT # 4.9 10*3/uL (2.3-7.9); PLATELET COUNT AUTOMATED 220 10*3/uL (130-400); RED BLOOD COUNT 4.07 10*6/uL (4.10-5.10); RED CELL DISTRI WIDTH 14.1 % (0-14.5)
[2018-12-13 07:55] LABS: BUN 15 mg/dl (7-24); CHLORIDE 103 mmol/L (98-107); CREATININE 0.64 mg/dL (0.55-1.02); POTASSIUM 3.6 mmol/L (3.5-5.1); SGOT/AST 24 IU/L (3-35); SGPT/ALT 18 U/L (12-78); SODIUM 136 mmol/L (136-145); TOTAL PROTEIN 6.5 gm/dL (6.4-8.2)
[2018-12-13 07:56] LABS: ALKALINE PHOSPHATASE 164 U/L (45-117)
[2018-12-13 08:00] VITALS: BP 154/70
--- NOTE | 2018-12-13 08:26 | NUR ---
Nursing screen received and Occupational THerapy evaluation received. Thank you. Sarahy Summers OTr/L
--- NOTE | 2018-12-13 08:44 | NUR ---
PT STATES NORCO WAS EFFECTIVE.
--- NOTE | 2018-12-13 11:41 | NUR ---
Formula Mixer in to talk to patient. Patient states lives at HOME with ALONE. There are NO steps in the home. Physician: PILAR SHANNON Pharmacy: [facility] Home health services: NONE Patient's level of ADLs: INDEPENDENT Patient has working utilities: YES DME: [facility] [facility] Follow-up physician's appointment after d/c: WILL BE MADE BY HOSPITALIST NURSE DIRECTOR ON DISCHARGE Does patient want to access PORTAL?: NO Discharge plan PT LIVES AT HOME ALONE WITH HER DAUGHTER LIVING CLOSE AND CHECKING ON HER. PT STATES SHE IS NORMALLY ABLE TO TAKE CARE OF HER DAILY NEEDS. SHE HAS A WALKER AND CANE AT HOME. TALKED WITH PT AND DAUGHTER ABOUT HOME HEALTH AND SNF STAY. THEY PREFER PT TO GO HOME WITH [facility] OR GO TO OUTPT THERAPY THEY DECLINE SNF. WILL CONTINUE TO FOLLOW. WILL HAVE RIDE PER DAUGHTER.. AISLINN KNOX
--- NOTE | 2018-12-13 12:11 | NUR ---
PRN ORDER FOR AGGIE REQUESTED AND RECIEVED FOR COMPLAINTS OF PAIN IN HER BACK AND LEFT HIP AREA THAT SHE RATES A 5/10. WILL MONITOR FOR EFEFCTIVENESS OF MEDICATION.
--- NOTE | 2018-12-13 13:30 | NUR ---
PHYSICAL THERAPY Patient evaluated on 5, full evaluation to follow. Continue with PT as per plan of care with fall, BACK PAIN and acute debility precautions. HOME WITH HOME HEALTH RN, PT AND AIDES PRN. PAtient is moderate complexity via chart review, tests and evaluation: 79887. Thank you for this referral. Sandra Heredia,PT
--- NOTE | 2018-12-13 13:30 | NUR ---
NORCO EFFECTIVE PER PT
[2018-12-13 16:00] VITALS: BP 136/56
--- NOTE | 2018-12-13 16:21 | NUR ---
Occupational Therapy evaluation completed on 5 with full eval to follow. Precautions include fall risk, bed alarm, new ww use, low back pain, moderate complexity level 94183 via chart review, testing and evaluation. Recommend OT per POC and return home with home health SN,OT,PT,[employer]. Thank you for this referral. Sarahy Summers Otr/l
--- NOTE | 2018-12-13 17:24 | NUR ---
PRN ORDER FOR AGGIE REQUESTED AND RECIEVED FOR C/O PAIN TO LEFT BACK & HIP. SHE RATES THE PAIN A 6/10. WILL MONITOR FOR EFFECTIVENESS.
--- NOTE | 2018-12-13 18:48 | NUR ---
NORCO EFFECTIVE. PT ASLEEP IN BED AT THIS TIME WITH NO S/S OF PAIN OR DISCOMFORT. WILL CONTINUE TO MONITOR PT.
[2018-12-13 20:00] VITALS: BP 124/50
--- NOTE | 2018-12-13 23:59 | NUR ---
PATIENT MEDICATED WITH NORCO PER PRN ORDER FOR C/O BACK AND LEG PAIN. RATED PAIN A 10/10 WITH 10 BEING THE WORST. SEE EMAR. REINFORCED USE OF CALL LIGHT
[2018-12-14] VITALS: BP 155/64
--- NOTE | 2018-12-14 07:30 | NUR ---
ASSUMED CARE FOR PT FROM TECHNICAL WRITING LEAD/MGR RN. PT IS RESTING IN BED AT THIS TIME AND DENIES ANY NEEDS. BED LOCKED AND IN THE LOWEST POSITION, CALL LIGHT WITHIN REACH. WILL CONTINUE TO MONITOR PT.
[2018-12-14 08:00] VITALS: BP 160/58; BP 172/62
--- NOTE | 2018-12-14 09:40 | NUR ---
PHYSICAL THERAPY Patient seen this am 1:1 for therapy visit and was supine in bed upon therapist arrival. Patient reports 10/10 LBP when attempting to sit up in bed, however pain suddenly drops to 4/10 once EOB sit. Patient instructed to reduce / eliminate trunk rotation and completes supine to to sit transfer with Min A. Patient transfers sit to stand, CGA and ambulates with use of wh walker, CGA, 50'x 1, demonstrating slow antalgic gait pattern secondary to c/o L hip pain. Patient returned to bedside chair and following brief seated rest performed seated B LE therex, all planes x 15 reps each without c/o. Patient remained in chair with call light, tray table, telephone and body alarm for safety. Will continue per POC as tolerated, total treatment time 23 minutes. Shabbir Hays, DIGITAL PHOTOGRAPHIC PRINTER
--- NOTE | 2018-12-14 10:05 | NUR ---
OT NOTE Pt was seen this A.M. 1:1 for 20 minute OT session. Upon arrival pt was supine in bed. Pt identified by name and and had complaints of 0/10 back pain at rest and 10/10 with activity. Pt was educated on back protection and bed mobility with good back protection. She then transferred supine to sit EOB with Danny for assist with UB with good carry over of back protection. While sitting EOB pt doffed and donned B socks with SBA with good carry over of compensatory technique. Sit to stand completed from bed level with CGA followed by functional mobility to the bathroom and back with CGA and use of w/w. Throughout mobility pt was twisting her back during turns with reports of 10/10 back pain. Educated and demonstrated safe turning technique to decrease risk of falls and decrease back pain. Pt had good carry over throughout. Pt then returned to the recliner where she was left sitting upright with call light in hand, tray table in place, and body alarm on for safety. Continue with rec D/C plan to home with home health. JOE Laughlin/Maddie
[2018-12-14 12:00] VITALS: BP 178/80
--- NOTE | 2018-12-14 12:02 | NUR ---
DR. LAMBERT NOTIFIED OF ELEVATED BP OF 178/80 MANUALLY. NO NEW ORDERS GIVEN AT THIS TIME, HE STATES HE WILL TAKE A LOOK AT IT. WILL CONTINUE TO MONITOR PT.
--- NOTE | 2018-12-14 12:17 | NUR ---
PRN ORDER FOR NORCO REQUESTED AND RECIEVED FOR COMPLAINTS OF 6/10 PAIN IN HER LEFT BACK/HIP. ALSO REQUESTED DULCOLAX FOR COMPLAINTS OF CONSTIPATION. WILL MONITOR FOR EFFECTIVENESS OF MEDICATIONS.
--- NOTE | 2018-12-14 13:50 | NUR ---
NORCO EFFECTIVE. PT RESTING IN BED WITH HER EYES CLOSED. NO OBVIOUS S/S OF PAIN OR DISCOMFORT. WILL CONTINUE TO MONITOR.
[2018-12-14 16:00] VITALS: BP 190/74
--- NOTE | 2018-12-14 16:50 | NUR ---
MEDICATED WITH PRN PO NORCO FOR LOW BACK AND LEFT HIP PAIN, ALSO MILK OF MAGNESIA FOR CONSTIPATION.
--- NOTE | 2018-12-14 17:47 | NUR ---
PRN PO NORCO EFFECTIVE, PER PATIENT.
[2018-12-14 19:25] VITALS: BP 138/74
[2018-12-14 20:00] VITALS: BP 139/63
[2018-12-15] VITALS: BP 161/68
--- NOTE | 2018-12-15 07:38 | NUR ---
PHYSICAL THERAPY Nursing screen received. PT orders also received. Thank you. Sandra Heredia,PT
[2018-12-15 08:00] VITALS: BP 160/64
[2018-12-15] MEDS ORDERED: NORVASC5 MG PO (10:49)
--- NOTE | 2018-12-15 10:55 | NUR ---
PHYSICAL THERAPY Patient seen this am 1;1 for therapy visit and was sitting in bedside chair upon therapist arrival. Patient voices mild c/o low back stiffness / chronic pain which tends to increase during prolonged standing activities. Patient instructed on HEP and performed seated B LE therex, all planes, 2 x 10 each to increase LE strength. Patient demonstrated and voiced good understanding of all ex and then transfers sit to stand CGA, ambulating 15'x 1, wh walker, CGA to EOB sit. Patient returned to bed SBA and remained with call light, tray table, telephone and bed alarm activated. Will continue per POC as tolerated, total treatment time 16 minutes. Shabbir Hyas, PRODUCTION ASSOCIATE
[2018-12-15] MEDS ORDERED: TYLENOL EXTRA500 MG PO (10:56)
--- NOTE | 2018-12-15 11:15 | NUR ---
OT NOTE Pt was seen this A.M. 1:1 for 15 minute OT session. Upon arrival pt was supine in bed. Pt identified by name and and had no complaints at this time. Pt transferred supine to sit EOB with SBA and good carry over of back protection throughout. Sit to stand completed from bed level with CGA and use of w/w for UE support. Functional mobility then completed into the bathroom with CGA and use of w/w. There pt transferred on/off standard commode with SBA and use of grab bar. Clothing management completed with CGA for safety. Pt then stood sink side while washing her hands with SBA. throughout pt had good carry over with good walker safety and back protection. Pt then transferred back into bed sit to supine with SBA. There she was left with call light in hand, tray table in place, and bed alarm activated for safety. Continue with rec D/C plan to home with home health. JOE Laughlin/Maddie
[2018-12-15 12:00] VITALS: BP 150/74
--- NOTE | 2018-12-15 13:20 | NUR ---
Discharge instructions reviewed with patient/family. Patient receptive and verbalizes understanding. Follow-up care arranged. Written instructions given to patient/family. MARLA DUGGAN
--- NOTE | 2018-12-15 13:25 | NUR ---
PHYSICAL THERAPY CO-SIGN I approve of the Phyical Therapy notes written above. CHRISTIAN NUR PT
--- NOTE | 2018-12-15 13:25 | NUR ---
CALLED FRANCISCO AT [facility] AND INFORMED HER PT WILL NOT BE DISCHARGED UNTIL TUESDAY PER DR MOSS.
--- NOTE | 2018-12-15 13:26 | NUR ---
CALLED DR MOSS AND INFORMED HIM I NEED A FACE TO FACE SHEET AND ORDER FOR HOME HEALTH FOR PT.
--- NOTE | 2018-12-15 14:00 | NUR ---
REFERRAL FAXED TO [facility].
--- NOTE | 2018-12-18 16:44 | NUR ---
OCCUPATIONAL THERAPY CO-SIGN I approve of the Occupational Therapy notes written above. YGOESH HERNANDEZ OTR/Maddie
== END 2018-12-15 13:20 | disposition home health service (06) | DRG 552 ==
LOC: ED 10:33 → 5E 12:33 → EDHOLD 12:33 → 5E 13:27
PROVIDERS: Emergency Medicine; Podiatrist Foot & Ankle Surgery; ADMIT Internal Medicine
DX: M48.00 Spinal stenosis, site unspecified (principal); E87.1 Hypo-osmolality and hyponatremia; E44.1 Mild protein-calorie malnutrition; M54.5 Low back pain; R73.9 Hyperglycemia, unspecified; E03.9 Hypothyroidism, unspecified; M54.30 Sciatica, unspecified side; I48.0 Paroxysmal atrial fibrillation; M19.90 Unspecified osteoarthritis, unspecified site; M81.0 Age-related osteoporosis without current pathological fracture; F41.9 Anxiety disorder, unspecified; I10 Essential (primary) hypertension; Z86.73 Personal history of transient ischemic attack (TIA), and cerebral infarction without residual deficits; Z87.891 Personal history of nicotine dependence; Z95.2 Presence of prosthetic heart valve; Z68.24 Body mass index [BMI] 24.0-24.9, adult

== ENCOUNTER 2018-12-27 00:44 | Inpatient (IN) | payer MEDICARE ==
[~2018-12-27] VITALS: Ht 147.3 cm; Wt 49.4 kg
[~2018-12-27 00:44] MED LIST changes: +NORVASC5 MG PO; +TYLENOL EXTRA500 MG PO
[2018-12-27 00:45] VITALS: BP 161/63
--- NOTE | 2018-12-27 00:53 | NUR ---
DTR IN THE ROOM WITH PATIENT.
[2018-12-27 00:59] LABS: BILIRUBIN NEGATIVE (NEGATIVE); BLOOD NEGATIVE (NEGATIVE); CLARITY CLEAR (CLEAR); COLOR YELLOW (YELLOW); GLUCOSE NEGATIVE (NEGATIVE); KETONE NEGATIVE (NEGATIVE); LEUKO ESTERASE TRACE (NEGATIVE); NITRITE NEGATIVE (NEGATIVE); SPECIFIC GRAVITY <= 1.005 (1.005-1.030); UROBILINOGEN 0.2 E.U./dl (0.2-1.0)
--- NOTE | 2018-12-27 01:36 | NUR ---
PAIN MED GIVEN WITHOUT INCIDENT. PATIENT TOLERATED WELL.LIGHTS DIMMED FOR PATIENTS COMFORT.
--- NOTE | 2018-12-27 01:47 | NUR ---
PATIENT RESTING COMFORTABLY. EASILY AROUSABLE. STATES PAIN MED EFFECTIVE.
--- NOTE | 2018-12-27 03:23 | NUR ---
Patient assisted onto fracture casanova due to need to urinate. Patient does not want a catheter. Patient tolerated transfer well. Call light within reach. Family member at bedside.
[2018-12-27 04:20] VITALS: BP 167/66
--- NOTE | 2018-12-27 04:20 | NUR ---
Time: 419 A 83 year old FEMALE admitted to 5E under services of JAMISON TARIQ DO. Pt. arrived via stretcher from ER. Chief complaint: FALL AT HOME. CHRISTAL SERVIN
[2018-12-27 04:30] VITALS: BP 167/66
[2018-12-27] MEDS ORDERED: TRAMADOL HCL50 MG PO (04:52)
--- NOTE | 2018-12-27 05:22 | NUR ---
CITLALLI CARRIONOTHY Kendy [id number] Please refer to the physician's history and physical for past medical history, comorbid conditions, and allergies. Diagnosis: LACERATION, CLOSED HEAD INJURY, FALL PELVIS Rudy Score: 16,AT RISK WOUND DESCRIPTIONS: Wound Number: 1 Location of the wound: Left occiptal Type of wound: laceration Thickness: Partial Size: 0.1cm x 2.0cm x 0.1cm Tunneling: none Undermining: none Sinus Tract: none Presence of Exudate: Sanguineous Amount: Light Color: Red Odor: None Periwound Skin Appearance: Normal Wound edges: approximated with 2 huang Pain (associated with wound): none at time of assessment How does patient state this happened? pt stated she fell prior to coming here she was informed on follow up in the wound care center or pcp to have huang removed in 10-14days daughter at bedside during assessment. Surface the patient is resting on: Isoflex SKIN PREVENTION RECOMMENDATION: 1. Pressure redistribution support surface as appropriate 2. Elevate heels 3. Remove boots/TEDS every shift and reapply 4. Head of bed 30 degrees as tolerated 5. Assess nutrition and hydration 6. Manage moisture 7. Avoid the use of containment devices while in bed 8. Use absorptive products on surfaces limit layers of linens on bed 9. Turn and reposition every 1-2 hours in bed and every 1 hour in chair as tolerated 10. Weight shifts every 15 minutes while up in chair 11. Offloading with pillows or device to keep heels elevated off bed 12. Monitor skin at least every shift 13. Inspect under medical devices twice a day WOUND TREATMENT RECOMMENDATIONS: Keep area to left occiptal clean and dry and may remove huang in 10-14 days.
--- NOTE | 2018-12-27 05:43 | NUR ---
REQUESTED AND RECEIVED MORPHINE IV PER PRN ORDER FOR COMPLAINTS OF LEFT PELVIC PAIN RATING AN 8. CALL LIGHT WITHIN REACH. WILL MONITOR FOR EFFECTIVENESS
[2018-12-27 06:05] LABS: BASO # 0.1 10*3/uL (0.0-0.1); BASO % 0.7 % (0.0-1.0); EOS % 0.3 % (1.0-4.0); HEMATOCRIT 36.2 % (37.0-47.0); HEMOGLOBIN 11.9 g/dl (12.0-16.0); LYMPH # 1.5 10*3/uL (1.3-4.4); LYMPH % 14.6 % (27.0-41.0); MEAN CELL VOLUME 87.9 fl (81.0-99.0); MEAN CORPUSCULAR HGB 28.9 pg (27.0-31.0); MEAN CORPUSCULAR HGB CONC 32.9 g/dl (33.0-37.0); MEAN PLATELET VOLUME 10.1 fl (9.6-12.3); MONO # 0.9 10*3/uL (0.1-1.0); MONO % 8.5 % (3.0-9.0); NEUT # 7.5 10*3/uL (2.3-7.9); PLATELET COUNT AUTOMATED 250 10*3/uL (130-400); RED BLOOD COUNT 4.12 10*6/uL (4.10-5.10); RED CELL DISTRI WIDTH 14.3 % (0-14.5); WHITE BLOOD COUNT 10.1 10*3/uL (4.8-10.8)
--- NOTE | 2018-12-27 06:30 | NUR ---
RESTING WITH EYES CLOSED. STATES RELIEF FROM EARLIER MORPHINE. PATIENT UNABLE TO TOLERATE APPLICATION OF LOREN HOSE. TUBI-TILER'S ASSISTANT AND SCDS APPLIED.
[2018-12-27 06:32] LABS: CHLORIDE 104 mmol/L (98-107); POTASSIUM 3.5 mmol/L (3.5-5.1); SODIUM 136 mmol/L (136-145)
[2018-12-27 06:42] LABS: ALBUMIN 3.1 gm/dl (3.1-4.5); ALKALINE PHOSPHATASE 287 U/L (45-117); BUN 15 mg/dl (7-24); CREATININE 0.55 mg/dL (0.55-1.02); PHOSPHOROUS 3.1 mg/dL (2.5-4.9); SGOT/AST 24 IU/L (3-35); SGPT/ALT 21 U/L (12-78); TOTAL PROTEIN 6.6 gm/dL (6.4-8.2)
[2018-12-27 08:00] VITALS: BP 154/87
--- NOTE | 2018-12-27 08:36 | NUR ---
Dr. Lr notified of wound care recommendations.
--- NOTE | 2018-12-27 08:39 | NUR ---
Nursing screen received and Occupational Therapy referral received. Thank you. Sarahy Summers OTR/l
--- NOTE | 2018-12-27 08:57 | NUR ---
PATIENT REQUESTED AND RECEIVED PO NORCO PER PRN ORDER FOR C/O LEFT PELVIC PAIN. RATES PAIN 5/10 AT REST. PAIN INCREASES WITH MOVEMENT. WILL MONITOR EFFECTIVENESS. BILATERAL SCDS INTACT. BED ALARM MAINTAINED FOR SAFETY. CALL LIGHT WITHIN REACH. WILL CONTINUE TO MONITOR.
--- NOTE | 2018-12-27 09:00 | NUR ---
PHYSICAL THERAPY Nursing screen and PT order received. Thank you. Isis Almanzar,PT,DPT
--- NOTE | 2018-12-27 09:45 | NUR ---
Occupational Therapy referral received and chart review completed. Patient was seen by Dr. Carlin who recommended non-surgical option and PT/OT fro left superior and inferior pubic ramus fx with extension into left acetabulum. OTR spoke with nursing who will contact orthopedic physician to obtain weight bearing before I can proceed with OT evalaution. Thank you. Sarahy Summers OTR/Maddie
--- NOTE | 2018-12-27 10:00 | NUR ---
JOSE MCO RELIEVING PAIN. WILL CONTINUE TO MONITOR.
--- NOTE | 2018-12-27 10:51 | NUR ---
PHYSICAL THERAPY Physical therapy evaluation attempted. On hold at this time waiting for weight bearing status. Thank you. Isis Almanzar,PT,DPT
--- NOTE | 2018-12-27 11:28 | NUR ---
AWARE OF CONSULT.
[2018-12-27 12:00] VITALS: BP 147/62
--- NOTE | 2018-12-27 12:17 | NUR ---
PT MEDICATED WITH IV MORPHINE SLOWLY PER PRN ORDER FOR C/O LEFT PELVIC PAIN. RATES PAIN 8/10. FAMILY AT BEDSIDE. WILL MONITOR EFFECTIVENESS.
--- NOTE | 2018-12-27 13:00 | NUR ---
PAIN BEING RELIEVED PER PT. WILL CONTINUE TO MONITOR.
--- NOTE | 2018-12-27 14:01 | NUR ---
AUTOMOTIVE HARDWARE ENGINEER spoke with the Patient. Patient stated her children are handling her aftercare. Patient stated okay talk to her children. AUTOMOTIVE HARDWARE ENGINEER reached out to Shannan Claudio (charles). Daughter stated her sister Leticia is handling the aftercare arrangements. AUTOMOTIVE HARDWARE ENGINEER exampled would help coordinate arrangements. Shannan took down callback info to pass to Leticia. AUTOMOTIVE HARDWARE ENGINEER to follow. -BRIDGER Workman
--- NOTE | 2018-12-27 14:20 | NUR ---
BRIDGER spoke with patients daughter Leticia ([phone]). She stated she would like her mom to got to a SNF in [place] if able. She stated her frist choice would be [facility] in [place], [place]. A call was placed to facility at [phone]. A message was left for the Admissions Office. Will await a return call. -BRIDGER Workman
--- NOTE | 2018-12-27 15:41 | NUR ---
PT MEDICATED WITH PO NORCO PER PRN ORDER FOR C/O PELVIC PAIN. RATES PAIN 5/10. WILL MONITOR EFFECTIVENESS.
[2018-12-27 16:00] VITALS: BP 132/56
--- NOTE | 2018-12-27 17:17 | NUR ---
PT TRANSPORTED OFF THE FLOOR VIA CART FOR SCHEDULED XRAY.
--- NOTE | 2018-12-27 19:01 | NUR ---
PT MEDICATED WITH IV MORPHINE PER PRN ORDER FOR C/O LEFT PELVIC PAIN. RATES PAIN 01/20. WILL MONITOR EFFECTIVENESS.
--- NOTE | 2018-12-27 20:00 | NUR ---
IN TO ASSESS PATIENT. SLEEPING, BUT AROUSES EASILY. STATES SHES NOT USED TO GETTING PAIN MEDICATION AND ITMAKES HER DROWSY. PATIENT DENIES ANY PAIN AT THIS TIME. BREATHING IS EASY AND REGULAR ON ROOM AIR. DIMINISHED LUNGS T/O. DENIES ANY NEEDS AT THIS TIME. DENIES CP, DENIES SOB. NORMOACTIVE BOWELS X4 QUADS, DENIES N/V/D. CALL LIGHT WITHIN REACH, WILL MONITOR
--- NOTE | 2018-12-27 23:10 | NUR ---
PATIENT SLEEPING. NO DISTRESS NOTED, CALL LIGHT WITHIN REACH, WILL MONITOR
[2018-12-28] VITALS: BP 161/78
--- NOTE | 2018-12-28 04:43 | NUR ---
24 HR chart check completed.
[2018-12-28 06:45] LABS: BASO # 0.1 10*3/uL (0.0-0.1); BASO % 0.6 % (0.0-1.0); EOS # 0.1 10*3/uL (0.0-0.4); EOS % 0.5 % (1.0-4.0); HEMATOCRIT 38.3 % (37.0-47.0); HEMOGLOBIN 12.4 g/dl (12.0-16.0); LYMPH # 1.8 10*3/uL (1.3-4.4); LYMPH % 14.7 % (27.0-41.0); MEAN CORPUSCULAR HGB 28.5 pg (27.0-31.0); MEAN CORPUSCULAR HGB CONC 32.4 g/dl (33.0-37.0); MEAN PLATELET VOLUME 10.2 fl (9.6-12.3); MONO # 0.9 10*3/uL (0.1-1.0); MONO % 7.4 % (3.0-9.0); NEUT # 9.3 10*3/uL (2.3-7.9); NEUT % 76.2 % (47.0-73.0); PLATELET COUNT AUTOMATED 290 10*3/uL (130-400); RED BLOOD COUNT 4.35 10*6/uL (4.10-5.10); RED CELL DISTRI WIDTH 14.4 % (0-14.5); WHITE BLOOD COUNT 12.2 10*3/uL (4.8-10.8)
--- NOTE | 2018-12-28 06:49 | NUR ---
PRN MOM AND MORPHINE GIVEN FOR PT COMPLAINTS OF CONSTIPATION, UNSURE OF LAST BOWEL MOVEMENT AND PAIN IN HER LEG WHEN SHE MOVES RATES IT 10. CALL LIGHT WITHIN REACH, WILL MONITOR
[2018-12-28 07:08] LABS: ALBUMIN 3.1 gm/dl (3.1-4.5); ALKALINE PHOSPHATASE 299 U/L (45-117); BUN 13 mg/dl (7-24); CHLORIDE 101 mmol/L (98-107); CREATININE 0.65 mg/dL (0.55-1.02); PHOSPHOROUS 2.8 mg/dL (2.5-4.9); POTASSIUM 4.2 mmol/L (3.5-5.1); SGOT/AST 23 IU/L (3-35); SGPT/ALT 20 U/L (12-78); SODIUM 136 mmol/L (136-145); TOTAL PROTEIN 6.8 gm/dL (6.4-8.2)
[2018-12-28 08:00] VITALS: BP 154/63
--- NOTE | 2018-12-28 08:00 | NUR ---
EARLIER MORPHINE EFFECTIVE PER PT. WILL CONTINUE TO MONITOR.
--- NOTE | 2018-12-28 11:14 | NUR ---
Estate Tax Examiner in to talk to patient. Patient states lives at HOME with ALONE. There are NO steps in the home. Physician: Jennifer SHANNON Pharmacy: [facility] services: [facility] Patient's level of ADLs: INDEPENDENT Patient has working utilities: YES DME: [facility] Follow-up physician's appointment after d/c: PT PLANS TO BE DISCHARGED TO A SNF IN IN CLOSER TO HER DAUGHTER. DOES NOT KNOW IF SHE WILL RETURN TO AREA Does patient want to access PORTAL?: NO Discharge plan PT WAS LIVING AT HOME ALONE UNTIL FALL. DAUGHTER HAS PROVIDED A LIST TO [facility] OF 5 FACILITIES IN THE AREA OF IN WHERE SHE LIVES. SW IS WORKING ON PLACEMENT FOR THESE FACIITIES. WILL CONTINUE TO FOLLOW. AISLINN KNOX
--- NOTE | 2018-12-28 11:25 | NUR ---
PT MEDICATED WITH PO NORCO PER PRN ORDER FOR C/O LEFT PELVIC PAIN. PATIENT UP IN CHAIR. RATES PAIN 5/10. WILL MONITOR EFFECTIVENESS.
--- NOTE | 2018-12-28 11:35 | NUR ---
FORM SETTER/DRIVER reached out to [facility]. There was no answer. FORM SETTER/DRIVER reached out to Pt and families second choice of [facility] ([phone]). Spoke with Kwadwo referral was placed. Still awaiting PT/OT notes. Will fax ([phone]) over once they are completed. -BRIDGER Workman
--- NOTE | 2018-12-28 11:47 | NUR ---
PHYSICAL THERAPY Physical therapy evaluation complete. Full evaluation details to follow. Moderate complexity evaluation: [id number] per chart review and evaluation. Partial WB to Left LE. Recommend SNF at discharge. Thank you. Isis Almanzar,PT,DPT
--- NOTE | 2018-12-28 12:08 | NUR ---
Occupational therapy eval completed on 5 with full eval to follow. Precautions include fall risk, bed alarm, IV UE, 3 huang in posterior head wound, and PWB LLE due to nondisplaced fracture of the left superior and mild displaced inferior pubic ramus with extension into left acetabulum. Moderate complexity level 83709 via chart review, testing, and eval. Recommend OT per POC and SNF to allow safe return to prior level of independence. Thank you for this referral. Bina Summers OTR/l
--- NOTE | 2018-12-28 13:34 | NUR ---
MONOTYPE CASTER faxed over PT/OT notes to [facility]. Will continue to monitor. -BRIDGER Workman
--- NOTE | 2018-12-28 14:35 | NUR ---
PT MEDICATED WITH IV MORPHINE PER PRN ORDER FOR C/O LEFT PELVIC PAIN. RATES PAIN 01/20. WILL MONITOR EFFECTIVENESS.
--- NOTE | 2018-12-28 15:30 | NUR ---
MORPHINE RELIEVING PAIN PER PT. WILL CONTINUE TO MONITOR.
[2018-12-28 16:00] VITALS: BP 104/50
--- NOTE | 2018-12-28 21:34 | NUR ---
PRN NORCO GIVEN FOR PT COMPLAINTS OF 6/10 IN THE PELVIS. CALL LIGHT WITHIN REACH, WILL MONITOR
--- NOTE | 2018-12-28 23:00 | NUR ---
PRN NORCO APPEARS EFFECTIVE, PT SLEEPING, BREATHING IS EASY AND REGULAR ON ROOM AIR, CALL LIGHT WITHIN REACH, WILL MONITOR
[2018-12-29] VITALS: BP 131/53
--- NOTE | 2018-12-29 02:18 | NUR ---
PATIENT SLEEPING, NO DISTRESS NOTED. BREATHING IS EASY AND REGULAR ON ROOM AIR, CALL LIGHT WITHIN REACH, WILL MONITOR
--- NOTE | 2018-12-29 02:19 | NUR ---
24 HR chart check completed.
--- NOTE | 2018-12-29 03:57 | NUR ---
PRN NORCO GIVEN FOR PT COMPLAINTS OF 6/10 HIP PAIN. CALL LIGHT WITHIN REACH, WILL MONITOR
--- NOTE | 2018-12-29 04:30 | NUR ---
PRN NORCO APPEARS EFFECTIVE, PT RESTING IN CHAIR . BREATHING IS EASY AND REGULAR WITHOUT DISTRESS ON ROOM AIR
[2018-12-29 08:00] VITALS: BP 153/51
--- NOTE | 2018-12-29 09:05 | NUR ---
PHYSICAL THERAPY Patient seen this am 1;1 for therapy visit and was sitting up in bedside chair upon therapist arrival. Patient reports mild 4/10 L hip pain and is still Partial WB on L LE. Patient performed several sit to stand transfers from low chair surface, MIN A, demonstrating very slow rise. Patient needed v/c to correct "slouched" upright posture and ambulated with use of wh walker, 20'x 2, CGA, demonstrating decreased stride / heel strike with very slow daniel. Patient also fatigues quickly, requiring brief seated rest < 30 seconds between gait trials. Patient returned to bedside chair and remained with call light, tray tabale and telephone. Will continue per POC as tolerated, total treatment time 15 minutes. Shabbir Hays, COMMERCIAL PAINTER
--- NOTE | 2018-12-29 09:06 | NUR ---
OT NOTE Pt was seen this A.M. 1:1 for 26 minute OT session. Upon arrival pt was sitting upright in the recliner. Pt identified by name and and had no complaints. Pt reported that at rest her pain was a 0/10 and with activity it elevated to a 4/10. Before standing pt was educated on her partial weight bearing status of the LLE, pt verbalized understanding. Pt transferred sit to stand from chair level with Danny and use of w/w for UE support. Functional mobility was then completed from recliner to the bathroom with CGA for safety and use of w/w for UE support. There she transferred on to standard commode with CGA and use of grab bar and off with Danny due to low surface. Educated pt on technique for increasing I in toilet transfers, pt had good carry over and was able to transfer off standard commode with CGA and use of grab bar. Pt then stood sink side while washing her hands with SBA for safety. Functional mobility completed back to the recliner for a seated rest break. Pt then completed sit to stand from chair level with Danny. While standing with no UE support challenged pt's dynamic standing balance while weight shifting, crossing midline, and reaching over all planes. Pt was able to maintain F standing balance. Throughout session pt had poor carry over of partial weight bearing status. Pt was left sitting reclined in the recliner with call light i hand, tray table in place, and phone in reach. Continue with rec D/C plan to SNF. ALKA Laughlin
--- NOTE | 2018-12-29 09:31 | NUR ---
BRIDGER reached back out to Kwadwo at [facility]. They are still reviewing the referral. He stated he would double check to make sure able to do the Hosptial Exemption. BRIDGER will monitor. - BRIDGER Workman
--- NOTE | 2018-12-29 12:16 | NUR ---
BRIDGER spoke with Kwad[facility] from [facility] [place] he stated they are able to accept the patient but not until Tuesday01/01/19. BRIDGER also recieved a call from the Patients daughter wanting to see if the patient could be referred to [facility] in [place] as well. Katie referral to Mary at [phone], Admissions #[phone].- BRIDGER Workman
--- NOTE | 2018-12-29 12:34 | NUR ---
STEEL MOLDER faxed referral to [facility]. Agricultural Produce Sorter Sydnee, spoke with the hospitalist in regards to [facility] not being able to accept the patient until Tuesday, the hosptialist was agreeable to waititng til Tuesday for discharge. STEEL MOLDER spoke with Kwadwo from [facility] to confirm Tuesday is the day of discharge. He was agreeable to complete [place] Hos[place]ial Excemption. Will notify family of current discharge plans. -BRIDGER Workman
--- NOTE | 2018-12-29 13:04 | NUR ---
OT NOTE Pt was seen this P.M. 1:1 for second OT session consisting of 24 minutes. Upon arrival pt was sitting reclined in the recliner. Pt identified by name and and had complaints of 6/10 L hip pain. Pt was sat upright in the recliner. While sitting pt doffed and donned B socks with SBA after being educated on compensatory technique. Pt then stood while donning and doffing a t-shirt with CGA for safety, pt did have one LOB while reaching overhead with BUE that required Danny to correct. Pt then completed functional mobility to the bathroom and back with CGA and use of w/w. Pt did require education on walker safety due to leaning over it versus standing upright, pt had good carry over throughout. Pt then transferred back into bed sit to supine with modA for assist with LLE. There she was left with call light in hand, tray table in place, and phone in reach. Continue with rec D/C plan to SNF. JOE Laughlin/Maddie
--- NOTE | 2018-12-29 14:03 | NUR ---
PT MEDICATED WITH NORCO FOR C/O PELVIC PAIN. PT RATES PAIN 5/10. WILL MONITOR.
[2018-12-29 16:00] VITALS: BP 139/61
[2018-12-29 20:00] VITALS: BP 162/62
--- NOTE | 2018-12-29 21:12 | NUR ---
MEDICATED WITH PRN NORCO FOR C/O PAIN. WILL MONITOR
[2018-12-30] VITALS: BP 151/67
[2018-12-30 08:00] VITALS: BP 155/65
--- NOTE | 2018-12-30 10:21 | NUR ---
PATIENT AMBULATED FROM BED TO DOORWAY BY WALKER/1 ASSIST WITH MINIMAL HELP, BACK TO CHAIR, NO C/O PAIN.
[2018-12-30 16:00] VITALS: BP 123/55
--- NOTE | 2018-12-30 19:30 | NUR ---
DR. LAST CONTACTED AT THIS TIME FOR PATIENT C/O MILD PAIN TO PELVIS. PATIENT IS REQUESTING TYLENOL, SEE NEW ORDERS.
[2018-12-30 20:00] VITALS: BP 138/71
--- NOTE | 2018-12-30 20:26 | NUR ---
PATIENT IS RESTING IN BED WITH EASY AND REGULAR RESPERS ON ROOM AIR. ASSESSMENT IS COMPLETE WITH NO S/S OF DISTRESS NOTED. PATIENT DOES C/O PELVIC PAIN AND IS REQUESTING TYLENOL AT THIS TIME. BED IS LOW, LOCKED, ALARMED, AND CALL LIGHT IS WITHIN REACH. SEE SHIFT ASSESSMENT.
[2018-12-31] VITALS: BP 130/58
--- NOTE | 2018-12-31 10:00 | NUR ---
PT STATES NO PAIN AT THIS TIME HOWEVER REQUESTED TYLENOL SO "PAIN STAYS AWAY AND I CAN GET UP AND MOVE AROUND". PT HAS NO OTHER NEEDS STATED AT THIS TIME, WILL MONITOR FOR EFFECTIVENESS
[2018-12-31 16:00] VITALS: BP 151/58
--- NOTE | 2018-12-31 20:44 | NUR ---
TYLENOL GIVEN FOR LOWER BACK PAIN RATED 3/10 AND ACHING. CALL LIGHT IN REACH. BED ALARM ON.
--- NOTE | 2018-12-31 21:43 | NUR ---
SLEEPING, NO SXS OF DISTRESS NOTED. CALL LIGHT IN REACH. BED ALARM ON. TYLENOL SEEMS TO BE EFFECTIVE.
[2019-01-01] VITALS: BP 145/69
--- NOTE | 2019-01-01 03:21 | NUR ---
24hr chart check completed.
--- NOTE | 2019-01-01 05:46 | NUR ---
AWAKENS EASILY FOR MORNING MEDS. TOLERATED WELL. NO VOICED COMPLAINTS OF PAIN AT THIS TIME, STATES HE "HAS NONE." CALL LIGHT IN REACH. BED ALARM ON.
[2019-01-01 08:00] VITALS: BP 147/73
--- NOTE | 2019-01-01 08:20 | NUR ---
Daughter called stating she does not want her mother to go to [place] rehab. She asked for the referral to [facility] in [place] be continued, she wants her to go there. Will contact [facility] and discuss referral.
--- NOTE | 2019-01-01 09:27 | NUR ---
MEDICATED WITH TYLENOL PER PRN ORDER FOR COMPLAINTS OF LOWER BACK PAIN. WILL MONITOR FOR EFFECTIVENESS.
--- NOTE | 2019-01-01 09:55 | NUR ---
PHYSICAL THERAPY PT SITTING IN RECLINER WITH LE ELEVATED AND BODY ALARM ON UPON ARRIVAL. PT IDENTIFIED BY NAME AND . PT AGREED TO ALL PT TREATMENT THIS A.M. PT UNABLE TO PUSH RECLINER LEG REST DOWN ON HER OWN AND REQUIRED THERAPIST TO DO SO. PT PERFORMED STS TO AND FROM RECLINER WITH CGA AND VC'S FOR PROPER TECHNIQUE AND SAFETY. ONCE PT WAS TO STANDING PT REQUIRED CISCO PT WAS RETRO AND PUTTING ALL WEIGHT ON HEELS. PT GAIT TRAINED 15FT X2 WITH CGA WITH FWW AND VC'S FOR WB STATUS. PT PERFORMED STS TO AND FROM TOILET WITH VC'S WITH SAFETY AND TECHNIQUE. PERFORMED STS TO RECLINER WITH PERFORMER TECHNIQUE AND SAFETY. PT PERFORMED THE FOLLOWING SEATED EXERCISES 10X EACH WITH VC'S AND DEMO FOR EACH EXERCISES. EACH EXERCISES TO INCREASE LE AND TRUNK STRENGTH. LAQ, TOE RAISE, HEEL RAISE, TRUNK FLEX AND GLUT SET. PT SITTING IN RELCINER WITH LE ELEVATED AND BODY ALARM ON WITH CALL LIGHT AND PHONE AT RIGHT SIDE. PT SEEN 1:1 FOR 32MINS. MATTEO BLAKE PTA
--- NOTE | 2019-01-01 10:58 | NUR ---
Upon discharge recommend patient to follow up for wound care in outpatient setting continue current wound care orders at discharging facility.
--- NOTE | 2019-01-01 11:43 | NUR ---
I have left 2 voicemails for [facility] asking for a return call on the patient referral that was faxed on Tuesday. Still waiting for a return call.
--- NOTE | 2019-01-01 11:43 | NUR ---
OT NOTE Pt was seen this A.M. 1:1 for 25 minute OT session. Upon arrival pt was sitting upright in the recliner. Pt identified by name and and had complaints of 3/10 pain in her L hip with activity. Pt completed sit to stand transfer from chair level with CGA for safety and use of w/w. Pt completed functional mobility into the bathroom with SBA and use of w/w. Pt required mod verbal instructions for walker safety due to poor safety awareness. Pt would have two points versus four on the floor, poor forward flexed posture, and safety with turns. Pt had fair carry over throughout session. Pt transferred on/off standard commode with Danny due to low surface. Clothing management and toilet hygiene completed with SBA. Pt then stood sink side while washing her hands, completing hair care, and oral care with SBA. Pt tolerated static standing at the sink for aprox 5 minutes before sitting due to fatigue. Pt then returned to the recliner for a seated rest. Then challened pt's dynamic standing balance while standing with SBA and no UE support. While reaching over all planes, weight shifting, and crossing midline pt was able to maintain F+ standing balance. Pt was left sitting reclined in the recliner with call light in hand, tray table in place, and body alarm on for safety. Continue with rec D/C plan to SNF. JOE Laughlin/Maddie
--- NOTE | 2019-01-01 11:56 | NUR ---
Patient accepted to [facility] in [facility]. Facility is working on PA PASS/RR and stated she can come today. Nurse to nurse report # [phone] . If patient requires narcotics on discharge, facility will need scripts. Hospitalists notified.
[2019-01-01] MEDS ORDERED: HYDROCODONE-AC1 EAC1 PO (12:03)
--- NOTE | 2019-01-01 12:12 | NUR ---
Patient is discharged to [facility] in [facility]. Nh, nursing/stewardesses teacher and daughter all notified. Transportation scheduled with [facility] at 3PM.
--- NOTE | 2019-01-01 13:50 | NUR ---
OT NOTE Attempted to see pt this P.M. for second OT session and upon arrival pt was supine in bed asleep. Pt was unable to arouse to verbal stimuli at this time. Will check back at a later time/date as able. JOE Laughlin/Maddie
--- NOTE | 2019-01-01 14:17 | NUR ---
MEDICATED WITH NORCO PER PRN ORDER FOR COMPLAINTS OF LOWER BACK AND PELVIC PAIN. RATES PAIN 01/20. WILL MONITOR FOR EFFECTIVENESS.
--- NOTE | 2019-01-01 15:30 | NUR ---
Discharge instructions reviewed with patient/family. Patient receptive and verbalizes understanding. Follow-up care arranged. Written instructions given to patient/family. IV site removed. Pt transported via [facility] ambulance. AUBRIE LEMON
--- NOTE | 2019-01-01 15:35 | NUR ---
NURSE TO NURSE REPORT GIVEN TO ASHWINI AT [facility].
--- NOTE | 2019-01-02 15:20 | NUR ---
OCCUPATIONAL THERAPY CO-SIGN I approve of the Occupational Therapy notes written above. YOGESH HERNANDEZ OTR/Maddie
--- NOTE | 2019-01-04 16:23 | NUR ---
PHYSICAL THERAPY CO-SIGN I approve of the Phyical Therapy notes written above. BEV HINES
== END 2019-01-01 15:30 | disposition other institution (70) | DRG 536 ==
LOC: ED 00:44 → EDHOLD 04:00 → 5E 04:00
PROVIDERS: Hospitalist; Student in an Organized Health Care Education/Training Program; ADMIT Internal Medicine
PROC: 0HQ0XZZ Repair Scalp Skin, External Approach (ICD-10-PCS; principal; 2018-12-27)
DX: S32.811A Multiple fractures of pelvis with unstable disruption of pelvic ring, initial encounter for closed fracture (principal); E44.0 Moderate protein-calorie malnutrition; S09.90XA Unspecified injury of head, initial encounter; S32.402A Unspecified fracture of left acetabulum, initial encounter for closed fracture; I48.0 Paroxysmal atrial fibrillation; F41.9 Anxiety disorder, unspecified; D64.9 Anemia, unspecified; K21.9 Gastro-esophageal reflux disease without esophagitis; R74.8 Abnormal levels of other serum enzymes; Z66 Do not resuscitate; Z51.5 Encounter for palliative care; M19.90 Unspecified osteoarthritis, unspecified site; S01.91XA Laceration without foreign body of unspecified part of head, initial encounter; W01.0XXA Fall on same level from slipping, tripping and stumbling without subsequent striking against object, initial encounter; Y93.89 Activity, other specified; Y92.098 Other place in other non-institutional residence as the place of occurrence of the external cause; Y99.8 Other external cause status; Z95.2 Presence of prosthetic heart valve; Z87.891 Personal history of nicotine dependence; Z80.3 Family history of malignant neoplasm of breast; Z84.89 Family history of other specified conditions; Z86.73 Personal history of transient ischemic attack (TIA), and cerebral infarction without residual deficits; Z79.899 Other long term (current) drug therapy; Z79.890 Hormone replacement therapy; Z79.01 Long term (current) use of anticoagulants; Z68.22 Body mass index [BMI] 22.0-22.9, adult

== ENCOUNTER → 2019-03-05 | Outpatient (CLI) | payer MEDICARE ==
[~2019-03-05] MED LIST changes: +HYDROCODONE-AC1 EAC1 PO; +TRAMADOL HCL50 MG PO
== END | disposition home or self-care (01) ==
LOC: RESCLI 00:09
DX: I48.91 Unspecified atrial fibrillation (principal); I10 Essential (primary) hypertension; E03.9 Hypothyroidism, unspecified; K21.9 Gastro-esophageal reflux disease without esophagitis; Z79.899 Other long term (current) drug therapy

== ENCOUNTER → 2019-04-02 | Outpatient (CLI) | payer MEDICARE | END | disposition home or self-care (01) | LOC: ORTHO 00:43 | DX: S32.811A Multiple fractures of pelvis with unstable disruption of pelvic ring, initial encounter for closed fracture (principal); X58.XXXA Exposure to other specified factors, initial encounter; Y93.89 Activity, other specified; Y92.89 Other specified places as the place of occurrence of the external cause; Y99.8 Other external cause status ==

== ENCOUNTER → 2019-07-02 | Outpatient (CLI) | payer MEDICARE | END | disposition home or self-care (01) | LOC: RESCLI 10:07 | DX: I48.91 Unspecified atrial fibrillation (principal); E78.2 Mixed hyperlipidemia; E78.5 Hyperlipidemia, unspecified; E03.9 Hypothyroidism, unspecified; E55.9 Vitamin D deficiency, unspecified; I35.0 Nonrheumatic aortic (valve) stenosis; I10 Essential (primary) hypertension; F41.9 Anxiety disorder, unspecified; F32.9 Major depressive disorder, single episode, unspecified; F43.21 Adjustment disorder with depressed mood; M40.205 Unspecified kyphosis, thoracolumbar region; G89.29 Other chronic pain; K21.9 Gastro-esophageal reflux disease without esophagitis; Z79.899 Other long term (current) drug therapy ==

== ENCOUNTER → 2019-08-17 | Outpatient (CLI) | payer MEDICARE ==
[~2019-08-17] MED LIST changes: +CEPHALEXIN500 M1 PO
== END | disposition home or self-care (01) ==
LOC: ORTHO 00:43
DX: S32.810S Multiple fractures of pelvis with stable disruption of pelvic ring, sequela (principal); X58.XXXS Exposure to other specified factors, sequela

== ENCOUNTER 2019-08-20 17:10 | Inpatient (IN) | payer MEDICARE ==
[~2019-08-20] VITALS: Ht 147.3 cm; Wt 50.6 kg
[~2019-08-20 17:10] MED LIST changes: -CEPHALEXIN500 M1 PO
[2019-08-20 18:08] VITALS: BP 141/58
[2019-08-20 20:00] VITALS: BP 152/68
--- NOTE | 2019-08-20 20:15 | NUR ---
INITIAL IV SITE INFILTRATED. DIRECT PRESSURE APPLIED. PT IN NO ACUTE DISTRESS
[2019-08-20 20:20] LABS: BASO # 0.1 10*3/uL (0.0-0.1); BASO % 1.1 % (0.0-1.0); EOS # 0.2 10*3/uL (0.0-0.4); EOS % 1.8 % (1.0-4.0); HEMATOCRIT 34.9 % (37.0-47.0); HEMOGLOBIN 11.2 g/dl (12.0-16.0); LYMPH # 1.4 10*3/uL (1.3-4.4); LYMPH % 15.4 % (27.0-41.0); MEAN CELL VOLUME 80.6 fl (81.0-99.0); MEAN CORPUSCULAR HGB 25.9 pg (27.0-31.0); MEAN CORPUSCULAR HGB CONC 32.1 g/dl (33.0-37.0); MEAN PLATELET VOLUME 11.1 fl (9.6-12.3); NEUT # 6.3 10*3/uL (2.3-7.9); NEUT % 69.6 % (47.0-73.0); PLATELET COUNT AUTOMATED 153 10*3/uL (130-400); RED BLOOD COUNT 4.33 10*6/uL (4.10-5.10); RED CELL DISTRI WIDTH 15.3 % (0-14.5)
[2019-08-20 20:38] LABS: ALBUMIN 3.2 gm/dl (3.1-4.5); ALKALINE PHOSPHATASE 186 U/L (45-117); BUN 18 mg/dl (7-24); CHLORIDE 101 mmol/L (98-107); CREATININE 0.93 mg/dL (0.55-1.02); SGOT/AST 27 IU/L (3-35); SGPT/ALT 21 U/L (12-78); SODIUM 131 mmol/L (136-145); TOTAL PROTEIN 7.6 gm/dL (6.4-8.2)
--- NOTE | 2019-08-20 20:56 | NUR ---
PT GIVEN BOXED LUNCH. IN NO ACUTE DISTRESS. SIDERAILS UP X2
[2019-08-20 21:20] LABS: BILIRUBIN NEGATIVE (NEGATIVE); BLOOD NEGATIVE (NEGATIVE); CLARITY CLEAR (CLEAR); COLOR YELLOW (YELLOW); GLUCOSE NEGATIVE (NEGATIVE); KETONE NEGATIVE (NEGATIVE); LEUKO ESTERASE NEGATIVE (NEGATIVE); NITRITE NEGATIVE (NEGATIVE); UROBILINOGEN 0.2 E.U./dl (0.2-1.0)
[2019-08-20 21:28] LABS: RBC 0-2 rbc/hpf (0-2)
[2019-08-20 21:29] LABS: BACTERIA 1+
[2019-08-20 21:30] LABS: MUCOUS TRACE
--- NOTE | 2019-08-20 22:05 | NUR ---
PT RESTING IN BED. IN NO ACUTE DISTRESS.
[2019-08-20 22:42] VITALS: BP 122/53
[2019-08-20 23:40] VITALS: BP 152/68
--- NOTE | 2019-08-20 23:40 | NUR ---
A 84, admitted to 5E, under the services of VIRGILIO Javed DO with a diagnosis of CELLULITIS. Chief complaint is LEFT LEG RED, SWOLLEN AND SEEPING. Patient arrived via ambulatory from ER. Monitor applied. Initial assessment completed. Vital signs taken and recorded. VIRGILIO JAVED DO notified of admission to the unit. Orders received. See assessment for past medical history, medications and allergies. Patient and/or family oriented to unit. visitation policy reviewed. Clothing/patient valuable form completed. MALATHI WOODY
--- NOTE | 2019-08-21 00:02 | NUR ---
PATIENT MEDICATED WITH NORCO FOR COMPLAINTS OF JOINT AND LEG PAIN. RESPIRATIONS REGULAR AND NON-LABORED ON ROOM AIR. WILL CONTINUE TO MONITOR. CALL LIGHT IN REACH.
--- NOTE | 2019-08-21 05:13 | NUR ---
RANDAL CARRION [id number] Please refer to the physician's history and physical for past medical history, comorbid conditions, and allergies. Diagnosis: CELLULITIS Rudy Score: 20,LOW OR NO RISK WOUND DESCRIPTIONS: Wound Number: 1 Location of the wound: left lower extremity Thickness: Partial Size: 14.0cm x 29.0cm x 0.1cm Tunneling: none Undermining: none Sinus Tract: none Presence of Exudate: Serous Amount: Light Color: Red Odor: None Periwound Skin Appearance: Erythema, edema Wound edges: approximated Pain (associated with wound): none at time of assessment How does patient state this happened? 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 She stated she noticed that on Tuesday that the her lower leg was wet and the drainage increased on tuesday and that is what brought her in to be seen Surface the patient is resting on: Isoflex SKIN PREVENTION RECOMMENDATION: 1. Pressure redistribution support surface as appropriate 2. Elevate heels 3. Remove boots/TEDS every shift and reapply 4. Head of bed 30 degrees as tolerated 5. Assess nutrition and hydration 6. Manage moisture 7. Avoid the use of containment devices while in bed 8. Use absorptive products on surfaces limit layers of linens on bed 9. Turn and reposition every 1-2 hours in bed and every 1 hour in chair as tolerated 10. Weight shifts every 15 minutes while up in chair 11. Offloading with pillows or device to keep heels elevated off bed 12. Monitor skin at least every shift 13. Inspect under medical devices twice a day WOUND TREATMENT RECOMMENDATIONS: Consult podiatry for areas to left lower extremities. Venous and arterial studies of BLE's Heel raiser pro boots to bilateral feet while in bed. Cleanse left lower extremity with nss and apply and apply sureprep around the wound and cover with abd pad and lightly wrap with kerlix daily and prn for soiling. Patient states she will care for these areas when she returns home like she did in the past.
[2019-08-21 06:32] LABS: BASO # 0.1 10*3/uL (0.0-0.1); BASO % 1.3 % (0.0-1.0); EOS # 0.1 10*3/uL (0.0-0.4); EOS % 1.9 % (1.0-4.0); HEMATOCRIT 32.7 % (37.0-47.0); HEMOGLOBIN 10.4 g/dl (12.0-16.0); LYMPH # 1.5 10*3/uL (1.3-4.4); MEAN CELL VOLUME 81.5 fl (81.0-99.0); MEAN CORPUSCULAR HGB 25.9 pg (27.0-31.0); MEAN CORPUSCULAR HGB CONC 31.8 g/dl (33.0-37.0); MEAN PLATELET VOLUME 11.6 fl (9.6-12.3); MONO % 13.7 % (3.0-9.0); NEUT # 4.2 10*3/uL (2.3-7.9); NEUT % 60.4 % (47.0-73.0); PLATELET COUNT AUTOMATED 150 10*3/uL (130-400); RED BLOOD COUNT 4.01 10*6/uL (4.10-5.10); RED CELL DISTRI WIDTH 15.4 % (0-14.5); WHITE BLOOD COUNT 6.9 10*3/uL (4.8-10.8)
[2019-08-21 06:59] LABS: BUN 15 mg/dl (7-24); CHLORIDE 104 mmol/L (98-107); CREATININE 0.93 mg/dL (0.55-1.02); IRON 35 ug/dL (50-170); PHOSPHOROUS 3.9 mg/dL (2.5-4.9); POTASSIUM 3.5 mmol/L (3.5-5.1); SODIUM 135 mmol/L (136-145); TOTAL IRON BINDING CAPACITY 346 ug/dl (250-450)
[2019-08-21 08:00] VITALS: BP 121/60
--- NOTE | 2019-08-21 08:30 | NUR ---
Roofing Plant Supervisor in to talk to patient. Patient states lives at home alone with her family checking in on her. There are no steps in the home. Physician: Janae Pierre [facility]: [facility] Home health services: previously [facility] but not currently Patient's level of ADLs: minimal assistance Patient has working utilities: yes DME: cane, rollator Follow-up physician's appointment after d/c: will be made by the hospitalist nurse director upon discharge Does patient want to access PORTAL?: no Discharge plan discussed with patient. She lives at home alone with her family checking in on her. She is independent in her ADLs and ambulates with a rollator or a cane. Discussed short term SNF and home health care services and she denies a need for either. When medically stable she will be discharged to home. She states her grandson will provide transportation on discharge as he was the one that brought her in. MANUELA CATHERINE
--- NOTE | 2019-08-21 09:44 | NUR ---
DR. LEDESMA AWARE OF CONSULT.
--- NOTE | 2019-08-21 10:14 | NUR ---
Nutritional Support Services Note: Pt is on a regular diet consuming 75% of meals. Cellulitis noted to lower left extremity. CBW: 111# Ht: 5'9. Staff to continue to encourage good PO intakes. No other nutrition intervention needed at this time. Will follow if needed. BETHANIE Cartwright international relations teacher
[2019-08-21 12:00] VITALS: BP 134/57
[2019-08-21 16:00] VITALS: BP 135/55
--- NOTE | 2019-08-21 19:30 | NUR ---
REPORT RECEIVED. PT LYING IN BED AT THIS TIME. DRESSING INTACT TO LEFT LEG. PT VOICES NO COMPLAINTS AT THIS TIME, CALL LIGHT IN REACH
[2019-08-21 20:00] VITALS: BP 118/59
--- NOTE | 2019-08-21 22:00 | NUR ---
PT LYING IN BED AT THIS TIME WATCHING TV. NO S/S OF DISTRESS NOTED, CALL LIGHT IN REACH
[2019-08-22] VITALS: BP 131/71
--- NOTE | 2019-08-22 01:00 | NUR ---
PT SLEEPING AT THIS TIME, NO S/S OF DISTRESS NOTED, CALL LIGHT IN REACH
--- NOTE | 2019-08-22 04:00 | NUR ---
PT SITTING IN CHAIR AT THIS TIME, STATES "CANT SLEEP ANYMORE" NO OTHER COMPLAINTS AT THIS TIME.
--- NOTE | 2019-08-22 06:00 | NUR ---
PT LYING IN BED AT THIS TIME
[2019-08-22 07:01] LABS: BASO # 0.1 10*3/uL (0.0-0.1); BASO % 1.2 % (0.0-1.0); EOS # 0.1 10*3/uL (0.0-0.4); EOS % 1.3 % (1.0-4.0); HEMATOCRIT 34.7 % (37.0-47.0); LYMPH # 1.7 10*3/uL (1.3-4.4); LYMPH % 21.7 % (27.0-41.0); MEAN CELL VOLUME 81.1 fl (81.0-99.0); MEAN CORPUSCULAR HGB 25.7 pg (27.0-31.0); MEAN CORPUSCULAR HGB CONC 31.7 g/dl (33.0-37.0); MEAN PLATELET VOLUME 11.6 fl (9.6-12.3); MONO # 0.9 10*3/uL (0.1-1.0); MONO % 11.8 % (3.0-9.0); NEUT # 4.9 10*3/uL (2.3-7.9); NEUT % 63.1 % (47.0-73.0); PLATELET COUNT AUTOMATED 157 10*3/uL (130-400); RED BLOOD COUNT 4.28 10*6/uL (4.10-5.10); RED CELL DISTRI WIDTH 15.5 % (0-14.5); WHITE BLOOD COUNT 7.8 10*3/uL (4.8-10.8)
[2019-08-22 07:39] LABS: BUN 17 mg/dl (7-24); CHLORIDE 102 mmol/L (98-107); POTASSIUM 4.3 mmol/L (3.5-5.1); SODIUM 135 mmol/L (136-145)
[2019-08-22 07:40] LABS: CREATININE 0.89 mg/dL (0.55-1.02)
[2019-08-22 08:00] VITALS: BP 144/59
[2019-08-22] MEDS ORDERED: CEPHALEXIN500 M1 PO (10:55)
--- NOTE | 2019-08-22 11:35 | NUR ---
PATIENT TO BE DISCHARGED TO HOME. WAITING ON A RIDE. ASSISTED WITH BANDAGE ON LEG TO GET SHOE ON. CALLED OUR PHARMACY AND ARRANGED FOR HER PRESCRIPTION TO BE PICKED UP BEFOR LEAVING. PATIENT UNDERSTANDS INSTRUCTIONS AND F/U CARE. PATIENT FULLY DRESSED AND DOESN'T WANT PICTURE TAKEN.
--- NOTE | 2019-08-22 11:49 | NUR ---
PATIENT DISCHARGED TO HOME.
== END 2019-08-22 11:49 | disposition home or self-care (01) | DRG 603 ==
LOC: ED 17:10 → 5E 21:44 → EDHOLD 21:44 → 5E 22:57
PROVIDERS: Internal Medicine; Physician Assistant; Student in an Organized Health Care Education/Training Program; ADMIT Family Medicine
DX: L03.116 Cellulitis of left lower limb (principal); E87.1 Hypo-osmolality and hyponatremia; E87.2 Acidosis; I50.32 Chronic diastolic (congestive) heart failure; E44.0 Moderate protein-calorie malnutrition; I35.0 Nonrheumatic aortic (valve) stenosis; D50.9 Iron deficiency anemia, unspecified; I48.0 Paroxysmal atrial fibrillation; F41.9 Anxiety disorder, unspecified; K21.9 Gastro-esophageal reflux disease without esophagitis; I87.2 Venous insufficiency (chronic) (peripheral); Z68.23 Body mass index [BMI] 23.0-23.9, adult; Z86.73 Personal history of transient ischemic attack (TIA), and cerebral infarction without residual deficits; Z79.01 Long term (current) use of anticoagulants; Z95.2 Presence of prosthetic heart valve; Z87.891 Personal history of nicotine dependence; Z80.3 Family history of malignant neoplasm of breast; Z79.899 Other long term (current) drug therapy

== ENCOUNTER 2019-08-30 09:43 | Emergency (ER) | payer MEDICARE ==
[~2019-08-30] VITALS: Ht 147.3 cm; Wt 49.9 kg
[~2019-08-30 09:43] MED LIST changes: +CEPHALEXIN500 M1 PO
== END 2019-08-30 10:19 | disposition home or self-care (01) ==
LOC: ED 09:43
DX: E87.1 Hypo-osmolality and hyponatremia (principal); M81.0 Age-related osteoporosis without current pathological fracture; Z79.899 Other long term (current) drug therapy; K21.9 Gastro-esophageal reflux disease without esophagitis; Z86.73 Personal history of transient ischemic attack (TIA), and cerebral infarction without residual deficits

== ENCOUNTER 2019-09-01 07:48 | Inpatient (IN) | payer MEDICARE ==
[~2019-09-01] VITALS: Ht 162.5 cm; Wt 51.7 kg
[2019-09-01 07:59] VITALS: BP 136/74
[2019-09-01 08:10] LABS: BASO # 0.1 10*3/uL (0.0-0.1); BASO % 0.6 % (0.0-1.0); EOS % 0.1 % (1.0-4.0); HEMATOCRIT 36.3 % (37.0-47.0); HEMOGLOBIN 11.5 g/dl (12.0-16.0); LYMPH # 0.9 10*3/uL (1.3-4.4); MEAN CELL VOLUME 81.6 fl (81.0-99.0); MEAN CORPUSCULAR HGB 25.8 pg (27.0-31.0); MEAN CORPUSCULAR HGB CONC 31.7 g/dl (33.0-37.0); MONO % 6.6 % (3.0-9.0); NEUT # 13.3 10*3/uL (2.3-7.9); NEUT % 86.1 % (47.0-73.0); PLATELET COUNT AUTOMATED 181 10*3/uL (130-400); RED BLOOD COUNT 4.45 10*6/uL (4.10-5.10); RED CELL DISTRI WIDTH 15.4 % (0-14.5); WHITE BLOOD COUNT 15.4 10*3/uL (4.8-10.8)
[2019-09-01 08:21] LABS: ACT PARTIAL THROMBO TIME 29.3 SECONDS (20.0-32.1); INTERNATIONAL NORM RATIO 1.1 (2.0-3.5)
[2019-09-01 08:27] LABS: ALKALINE PHOSPHATASE 176 U/L (45-117); BUN 18 mg/dl (7-24); CHLORIDE 103 mmol/L (98-107); CREATININE 0.72 mg/dL (0.55-1.02); POTASSIUM 3.9 mmol/L (3.5-5.1); SGOT/AST 25 IU/L (3-35); SGPT/ALT 16 U/L (12-78); SODIUM 134 mmol/L (136-145); TOTAL PROTEIN 6.8 gm/dL (6.4-8.2)
[2019-09-01 08:37] LABS: TROPONIN I < 0.015 ng/ml (<0.045)
[2019-09-01 08:56] VITALS: BP 130/66
[2019-09-01] MEDS ORDERED: ESCITALOPRAM OXA5 MG PO (10:27)
[2019-09-01 16:00] VITALS: BP 125/64
[2019-09-01 20:00] VITALS: BP 137/56
[2019-09-02] VITALS (7 sets, daily range): BP systolic 70–130; BP diastolic 42–62
[2019-09-02 06:20] LABS: BASO # 0.1 10*3/uL (0.0-0.1); BASO % 0.7 % (0.0-1.0); EOS # 0.1 10*3/uL (0.0-0.4); HEMATOCRIT 30.2 % (37.0-47.0); HEMOGLOBIN 9.9 g/dl (12.0-16.0); LYMPH # 1.1 10*3/uL (1.3-4.4); LYMPH % 12.1 % (27.0-41.0); MEAN CELL VOLUME 79.9 fl (81.0-99.0); MEAN CORPUSCULAR HGB 26.2 pg (27.0-31.0); MEAN CORPUSCULAR HGB CONC 32.8 g/dl (33.0-37.0); MEAN PLATELET VOLUME 11.1 fl (9.6-12.3); MONO # 0.9 10*3/uL (0.1-1.0); MONO % 9.9 % (3.0-9.0); NEUT # 6.7 10*3/uL (2.3-7.9); NEUT % 75.1 % (47.0-73.0); PLATELET COUNT AUTOMATED 154 10*3/uL (130-400); RED BLOOD COUNT 3.78 10*6/uL (4.10-5.10); RED CELL DISTRI WIDTH 15.4 % (0-14.5); WHITE BLOOD COUNT 8.9 10*3/uL (4.8-10.8)
[2019-09-02 06:49] LABS: ALBUMIN 2.3 gm/dl (3.1-4.5); ALKALINE PHOSPHATASE 140 U/L (45-117); BUN 15 mg/dl (7-24); CHLORIDE 104 mmol/L (98-107); CHOLESTEROL 129 mg/dL (<200); HDL CHOLESTEROL 54 mg/dl (40-60); LDL CHOLESTEROL 63 mg/dL (9-159); PHOSPHOROUS 3.6 mg/dL (2.5-4.9); POTASSIUM 4.2 mmol/L (3.5-5.1); SGOT/AST 20 IU/L (3-35); SGPT/ALT 13 U/L (12-78); SODIUM 135 mmol/L (136-145); TOTAL PROTEIN 5.6 gm/dL (6.4-8.2); TRIGLYCERIDES 58 mg/dl (<150); VLDL CHOLESTEROL 12 mg/dL (6-40)
[2019-09-02 07:44] LABS: VITAMIN D, 25-HYDROXY 23.6 ng/mL (30-100)
[2019-09-03] VITALS: BP 140/72
[2019-09-03 08:00] VITALS: BP 143/56
[2019-09-03] MEDS ORDERED: LEVAQUIN750 M1 PO (08:52)
[2019-09-03] MEDS ORDERED: VITAMIN D32000 UNI2 PO (10:14)
[2019-09-03 12:00] VITALS: BP 134/59
== END 2019-09-03 15:55 | disposition home health service (06) | DRG 178 ==
LOC: ED 07:48 → EDHOLD 09:29 → 4E 09:29
PROVIDERS: Emergency Medicine; Registered Nurse; ADMIT Internal Medicine
DX: J15.6 Pneumonia due to other Gram-negative bacteria (principal); D68.69 Other thrombophilia; I50.32 Chronic diastolic (congestive) heart failure; E44.0 Moderate protein-calorie malnutrition; Z68.1 Body mass index [BMI] 19.9 or less, adult; E87.1 Hypo-osmolality and hyponatremia; M94.0 Chondrocostal junction syndrome [Tietze]; I48.0 Paroxysmal atrial fibrillation; R54 Age-related physical debility; E03.9 Hypothyroidism, unspecified; K21.9 Gastro-esophageal reflux disease without esophagitis; F41.1 Generalized anxiety disorder; I10 Essential (primary) hypertension; D50.9 Iron deficiency anemia, unspecified; E55.9 Vitamin D deficiency, unspecified; Z66 Do not resuscitate; Z51.5 Encounter for palliative care; Z79.899 Other long term (current) drug therapy; Z95.2 Presence of prosthetic heart valve; Z80.3 Family history of malignant neoplasm of breast; Z86.73 Personal history of transient ischemic attack (TIA), and cerebral infarction without residual deficits

== ENCOUNTER 2019-09-18 12:14 | Emergency (ER) | payer MEDICARE ==
[~2019-09-18 12:14] MED LIST changes: +ESCITALOPRAM OXA5 MG PO; +LEVAQUIN750 M1 PO; +VITAMIN D32000 UNI2 PO
[2019-09-18 13:08] LABS: BASO # 0.1 10*3/uL (0.0-0.1); BASO % 0.8 % (0.0-1.0); EOS % 0.3 % (1.0-4.0); HEMATOCRIT 28.8 % (37.0-47.0); HEMOGLOBIN 9.3 g/dl (12.0-16.0); LYMPH # 1.1 10*3/uL (1.3-4.4); LYMPH % 9.2 % (27.0-41.0); MEAN CELL VOLUME 78.9 fl (81.0-99.0); MEAN CORPUSCULAR HGB 25.5 pg (27.0-31.0); MEAN CORPUSCULAR HGB CONC 32.3 g/dl (33.0-37.0); MEAN PLATELET VOLUME 10.7 fl (9.6-12.3); MONO # 1.2 10*3/uL (0.1-1.0); MONO % 10.5 % (3.0-9.0); NEUT % 77.2 % (47.0-73.0); PLATELET COUNT AUTOMATED 181 10*3/uL (130-400); RED BLOOD COUNT 3.65 10*6/uL (4.10-5.10); RED CELL DISTRI WIDTH 15.4 % (0-14.5); WHITE BLOOD COUNT 11.6 10*3/uL (4.8-10.8)
[2019-09-18 13:24] LABS: ALBUMIN 2.3 gm/dl (3.1-4.5); ALKALINE PHOSPHATASE 147 U/L (45-117); BUN 16 mg/dl (7-24); CHLORIDE 104 mmol/L (98-107); CREATININE 0.79 mg/dL (0.55-1.02); POTASSIUM 3.4 mmol/L (3.5-5.1); SGOT/AST 22 IU/L (3-35); SGPT/ALT 15 U/L (12-78); SODIUM 134 mmol/L (136-145); TOTAL PROTEIN 5.9 gm/dL (6.4-8.2); TROPONIN I 0.036 ng/ml (<0.045)
[2019-09-18 13:29] LABS: BILIRUBIN NEGATIVE (NEGATIVE); CLARITY CLEAR (CLEAR); COLOR YELLOW (YELLOW); GLUCOSE NEGATIVE (NEGATIVE); KETONE NEGATIVE (NEGATIVE)
[2019-09-18 13:30] LABS: BLOOD NEGATIVE (NEGATIVE); LEUKO ESTERASE NEGATIVE (NEGATIVE); NITRITE NEGATIVE (NEGATIVE); PH 6.5 (5.0-9.0); UROBILINOGEN 0.2 E.U./dl (0.2-1.0)
[2019-09-18] MEDS ORDERED: K-TAB20 MEQ PO (15:08)
[2019-09-18] MEDS ORDERED: LASIX20 MG PO (15:08)
== END 2019-09-18 15:12 | disposition home or self-care (01) ==
LOC: ED 12:14
PROVIDERS: Emergency Medicine
DX: L03.116 Cellulitis of left lower limb (principal); R60.0 Localized edema; R06.02 Shortness of breath; M81.0 Age-related osteoporosis without current pathological fracture; K21.9 Gastro-esophageal reflux disease without esophagitis; I10 Essential (primary) hypertension; E03.9 Hypothyroidism, unspecified; I48.0 Paroxysmal atrial fibrillation; M19.90 Unspecified osteoarthritis, unspecified site; E78.00 Pure hypercholesterolemia, unspecified; Z79.899 Other long term (current) drug therapy; Z79.2 Long term (current) use of antibiotics; Z86.73 Personal history of transient ischemic attack (TIA), and cerebral infarction without residual deficits; Z87.891 Personal history of nicotine dependence

== ENCOUNTER 2019-10-14 13:19 | Inpatient (IN) | payer MEDICARE ==
[~2019-10-14] VITALS: Ht 144.8 cm; Wt 51.8 kg
[~2019-10-14 13:19] MED LIST changes: +K-TAB20 MEQ PO; +LASIX20 MG PO
[2019-10-14 13:29] VITALS: BP 134/62
[2019-10-14 13:40] VITALS: BP 134/62
--- NOTE | 2019-10-14 13:56 | NUR ---
THE DAUGHTER DID POINT TO AN AREA ABOVE THE LEFT ELBOW THAT IS A SCAR. PER THE DAUGHTER SHE HAS HAD THAT SINCE A PREVIOUS ADMISSION HER AT THIS FACILITY. NOTED 2 AREAS OF ECCHYMOSIS/SKIN DISCOLORATION TO THE RIGHT LOWER LEG FROM A FALL A FEW WEEKS AGO.
--- NOTE | 2019-10-14 14:03 | NUR ---
THE PT HAS BILATERAL HEARING AIDS, GLASSESS, UPPER AND LOWER DENTURES ALONG WITH HER CLOTHING AND SHOES. NO JEWELRY
[2019-10-14 14:17] LABS: BASO # 0.1 10*3/uL (0.0-0.1); BASO % 0.6 % (0.0-1.0); EOS % 0.3 % (1.0-4.0); HEMATOCRIT 29.9 % (37.0-47.0); LYMPH % 8.6 % (27.0-41.0); MEAN CELL VOLUME 77.3 fl (81.0-99.0); MEAN CORPUSCULAR HGB 24.5 pg (27.0-31.0); MEAN CORPUSCULAR HGB CONC 31.8 g/dl (33.0-37.0); MEAN PLATELET VOLUME 10.6 fl (9.6-12.3); MONO % 8.9 % (3.0-9.0); NEUT # 9.2 10*3/uL (2.3-7.9); NEUT % 79.7 % (47.0-73.0); PLATELET COUNT AUTOMATED 222 10*3/uL (130-400); RED BLOOD COUNT 3.87 10*6/uL (4.10-5.10); RED CELL DISTRI WIDTH 15.6 % (0-14.5); WHITE BLOOD COUNT 11.5 10*3/uL (4.8-10.8)
[2019-10-14 14:21] LABS: ACT PARTIAL THROMBO TIME 29.1 SECONDS (20.0-32.1); INTERNATIONAL NORM RATIO 1.1 (2.0-3.5)
--- NOTE | 2019-10-14 14:24 | NUR ---
THIS NURSE PUT THE BLOOD SAMPLE IN THE WRONG SLOT AND ANOTHER TEST HAD TO BE OBTAINED.
[2019-10-14 14:28] LABS: ALBUMIN 2.1 gm/dl (3.1-4.5); ALKALINE PHOSPHATASE 262 U/L (45-117); BUN 25 mg/dl (7-24); CHLORIDE 102 mmol/L (98-107); CREATININE 0.96 mg/dL (0.55-1.02); POTASSIUM 3.5 mmol/L (3.5-5.1); SGOT/AST 41 IU/L (3-35); SGPT/ALT 25 U/L (12-78); SODIUM 136 mmol/L (136-145)
[2019-10-14 14:32] LABS: TROPONIN I < 0.015 ng/ml (<0.045)
[2019-10-14 15:09] VITALS: BP 115/52
--- NOTE | 2019-10-14 15:09 | NUR ---
THE PATIENT IS A&OX4 AND DENIES ANY OPEN AREAS TO HER BODY
--- NOTE | 2019-10-14 15:34 | NUR ---
I WAS NOTIFIED BY THE TRAUMA DOCTOR THAT IT WILL BE OVER AN HOUR BEFORE THE PATIENT GETS A BED ASSIGNMENT
[2019-10-14 16:51] VITALS: BP 137/71
--- NOTE | 2019-10-14 16:51 | NUR ---
A 84, admitted to [facility], under the services of TITUS Carlisle DO with a diagnosis of CHF, CELLULITIS, GEN WEAKNESS. Chief complaint is SOB. Patient arrived via ambulatory from ER. Monitor applied. Initial assessment completed. Vital signs taken and recorded. TITUS CARLISLE DO notified of admission to the unit. Orders received. See assessment for past medical history, medications and allergies. Patient and/or family oriented to unit. [facility] visitation policy reviewed. Clothing/patient valuable form completed. JON ZAMBRANO
--- NOTE | 2019-10-14 18:12 | NUR ---
LEFT MESSAGE WITH CONSULT SERVICE REGARDING NEW CONSULT.
--- NOTE | 2019-10-14 18:17 | NUR ---
AWARE OF CONSULT. SAID HE WOULD BE IN TOMORROW TO SEE PT. ALSO CALLED BACK. NO NEW ORDERS AT THIS TIME. WILL SEE PT TOMORROW.
[2019-10-14] MEDS ORDERED: FUROSEMIDE20 M1 PO (19:07)
[2019-10-14] MEDS ORDERED: SYNTHROID,LEVO75 MCG PO (19:13)
[2019-10-14] MEDS ORDERED: ACID REDUCER20 MG PO (19:14)
--- NOTE | 2019-10-14 19:20 | NUR ---
REPORT RECEIVED. PT WATCHING TV AT THIS TIME. CALL LIGHT IN REACH
[2019-10-14 20:00] VITALS: BP 129/62
--- NOTE | 2019-10-14 21:00 | NUR ---
PT LYING IN BED AT THIS TIME. PT VOICES NO COMPLAINTS. CALL LIGHT IN REACH
--- NOTE | 2019-10-14 23:00 | NUR ---
PT SLEEPING AT THIS TIME. CALL LIGHT IN REACH
[2019-10-15] VITALS: BP 132/60
--- NOTE | 2019-10-15 01:00 | NUR ---
PT SLEEPING, RESPIRATIONS EASY AND UNLABORED. CALL LIGHT IN REACH
--- NOTE | 2019-10-15 03:00 | NUR ---
PT SLEEPING AT THIS TIME. RESPIRATIONS EASY AND UNLABORED, CALL LIGHT IN REACH
--- NOTE | 2019-10-15 05:00 | NUR ---
PT ASLEEP. CALL LIGHT IN REACH
[2019-10-15 06:23] LABS: BASO # 0.1 10*3/uL (0.0-0.1); BASO % 0.9 % (0.0-1.0); EOS % 0.5 % (1.0-4.0); HEMATOCRIT 28.9 % (37.0-47.0); LYMPH # 1.3 10*3/uL (1.3-4.4); LYMPH % 15.2 % (27.0-41.0); MEAN CELL VOLUME 76.9 fl (81.0-99.0); MEAN CORPUSCULAR HGB 24.5 pg (27.0-31.0); MEAN CORPUSCULAR HGB CONC 31.8 g/dl (33.0-37.0); MEAN PLATELET VOLUME 11.2 fl (9.6-12.3); MONO # 0.8 10*3/uL (0.1-1.0); NEUT % 70.9 % (47.0-73.0); PLATELET COUNT AUTOMATED 221 10*3/uL (130-400); RED BLOOD COUNT 3.76 10*6/uL (4.10-5.10); RED CELL DISTRI WIDTH 15.6 % (0-14.5); WHITE BLOOD COUNT 8.4 10*3/uL (4.8-10.8)
[2019-10-15 06:39] LABS: ALBUMIN 1.9 gm/dl (3.1-4.5); ALKALINE PHOSPHATASE 248 U/L (45-117); BUN 22 mg/dl (7-24); CHLORIDE 103 mmol/L (98-107); POTASSIUM 3.6 mmol/L (3.5-5.1); SGOT/AST 39 IU/L (3-35); SGPT/ALT 23 U/L (12-78); SODIUM 138 mmol/L (136-145); TOTAL PROTEIN 5.7 gm/dL (6.4-8.2)
--- NOTE | 2019-10-15 07:48 | NUR ---
PHYSICAL THERAPY Screen and PT eval received will follow thank you Zaria Jensen PT
[2019-10-15 08:00] VITALS: BP 114/53
--- NOTE | 2019-10-15 08:54 | NUR ---
SENT TO XRAY VIA WHEELCHAIR
--- NOTE | 2019-10-15 09:23 | NUR ---
RETURN FROM TESTING
--- NOTE | 2019-10-15 09:30 | NUR ---
Recruitment Intern in to talk to patient. Patient states lives at home with alone. There are no steps in the home. Physician: ole judge [facility] Home health services: [facility] Patient's level of ADLs: INDEPENDENT Patient has working utilities: all working DME: cane, rollator walker Follow-up physician's appointment after d/c: will be made by hospitalist nurse director upon discharge Does patient want to access PORTAL?: no Discharge plan discussed with patient, she states she lives at home alone, she uses a cane or rollator walker, she states she doesn't drive but her grandson takes her to the grocery store or any appointments. patient stated she was weak, discussed with her a short term snf 5 days of physical therapy prior to returning home, patient stated at this time she wasn't sure what she would need but is planning on returning home and continuing her home health, case management will follow for any needs. SAILAJA ARIAS
--- NOTE | 2019-10-15 10:42 | NUR ---
DR. FONTAINE IN TO SEE PATIENT, LASIX CHANGED, ORDER PLACED. PER DR. FONTAINE PLEASE ENCOURAGE PATIENT TO EAT, IF PATIENT CONTINUES TO NOT EAT, PLEASE ORDER ENSURE
--- NOTE | 2019-10-15 11:30 | NUR ---
Occupational Therapy evaluation completed on four with full evaluation to follow. Recommend occupational therapy per plan of care and SNF upon discharge. Thank you for this referral. Magnolia Scott OTR/L
--- NOTE | 2019-10-15 11:30 | NUR ---
Physical Therapy evaluation completed on fourth floor with full evaluation to follow. Recommend physical therapy per plan of care pt would benefit from SNF prior to home as lives alone very SOB with limited activity, c/o increase weakness with limited ambulation, but states she will go home with continuation of HH, would also benefit from family staying with pt to assist with care and activity along with life alert. Thank you for this referral. Zaria Jensen PT
[2019-10-15 12:00] VITALS: BP 112/52
--- NOTE | 2019-10-15 13:54 | NUR ---
ECHO AT BEDSIDE
--- NOTE | 2019-10-15 14:59 | NUR ---
MOM GIVEN FOR COMPLAINT OF CONSTIPATION
[2019-10-15 16:00] VITALS: BP 113/54
[2019-10-15 20:00] VITALS: BP 94/50
[2019-10-15 20:30] VITALS: BP 104/60
[2019-10-16] VITALS: BP 113/50
--- NOTE | 2019-10-16 04:54 | NUR ---
PT ASSISTED UP OUT OF BED INTO BATHROOM. PT HAD ANOTHER BOWEL MOVEMENT. DEPENDS PROVIDED PER REQUEST. PATIENT ASSISTED TO SIT UP IN RECLINER CHAIR. STATES SHE WANTS TO LOOK OUT THE WINDOW AND WATCH THE SUN RISE. BODY ALARM APPLIED. CALL LIGHT IN REACH. WILL MONITOR.
[2019-10-16 06:28] LABS: BASO # 0.1 10*3/uL (0.0-0.1); BASO % 0.9 % (0.0-1.0); EOS % 0.3 % (1.0-4.0); HEMATOCRIT 27.7 % (37.0-47.0); LYMPH % 11.6 % (27.0-41.0); MEAN CELL VOLUME 77.2 fl (81.0-99.0); MEAN CORPUSCULAR HGB 24.8 pg (27.0-31.0); MEAN CORPUSCULAR HGB CONC 32.1 g/dl (33.0-37.0); MEAN PLATELET VOLUME 10.7 fl (9.6-12.3); MONO % 10.6 % (3.0-9.0); NEUT # 6.7 10*3/uL (2.3-7.9); NEUT % 74.9 % (47.0-73.0); PLATELET COUNT AUTOMATED 232 10*3/uL (130-400); RED BLOOD COUNT 3.59 10*6/uL (4.10-5.10); RED CELL DISTRI WIDTH 15.6 % (0-14.5); WHITE BLOOD COUNT 8.9 10*3/uL (4.8-10.8)
[2019-10-16 06:53] LABS: BUN 20 mg/dl (7-24); CHLORIDE 104 mmol/L (98-107); CREATININE 0.91 mg/dL (0.55-1.02); POTASSIUM 3.3 mmol/L (3.5-5.1); SODIUM 137 mmol/L (136-145)
[2019-10-16 08:00] VITALS: BP 124/62
--- NOTE | 2019-10-16 09:00 | NUR ---
case management visits with patient, again discussed a short term group home for 5 days of rehab and 24 hour care, patient was receptive to this today, given choice of facilities she chose [facility]. senior media planner will make referral for patient for [facility], case management will follow
--- NOTE | 2019-10-16 09:00 | NUR ---
PATIENT IS AAOX3 RESTING IN BED WITH EASY AND REGULAR RESPERS ON ROOM AIR. ASSESSMENT IS COMPLETE WITH NO C/O OR S/S OF DISTRESS NOTED AT THIS TIME. BED IS LOW, LOCKED, AND CALL LIGHT IS WITHIN REACH. WILL CONTINUE TO MONITOR, SEE SHIFT ASSESSMENT.
--- NOTE | 2019-10-16 09:41 | NUR ---
Patient requesting a referral [facility]. Full referral faxed, waiting on review/acceptance.
--- NOTE | 2019-10-16 09:50 | NUR ---
Hospital exemption completed online in [facility] system
--- NOTE | 2019-10-16 11:57 | NUR ---
SPOKE WITH RADIOLOGY REGARDING DR. EISENBERG CONSULT. INSTRUCTED TO PUT MESSAGE IN AND IT WILL BE PASSED ON.
[2019-10-16 12:00] VITALS: BP 122/62
--- NOTE | 2019-10-16 12:00 | NUR ---
SPOKE WITH DR. PIMENTEL IN REGARDS TO PARACENTHESIS, ORDERED TO SET UP FOR TOMORROW.
--- NOTE | 2019-10-16 12:29 | NUR ---
SPOKE WITH PATIENT IN REGARDS TO PARACENTHESIS. PATIENT DID NOT WANT TO SIGN CONCENT UNTIL DISCUSSED WITH CHILDREN. CONCENT ON CHART. NO NEEDS VOICED AT THIS TIME.
--- NOTE | 2019-10-16 13:20 | NUR ---
PHYSICAL THERAPY Patient seen this pm 1;1 for therapy visit and was sitting up on EOB with patient present upon therapist arrival. Patient identified by name / and stated she felt "sluggish" today. OT administrative office assistant was also present for observation only this session as patient requested use of bathroom, transfering sit to stand MIN A x 1. Patient ambulated with use of wh walker, demonstrating very slow, cautious gait pattern, decreased stride and needed v/c to improve upright posture. Patient voiced fear of falling and was very unsteady in tight bathroom spaces, requiring v/c for improved walker safety / navigation. Patient returned to bedside chair following gait ex 15'x 2, increased fatigue and remained in chair with call light, tray table, telephone and body alarm for safety. Will continue per POC as tolerated, total treatment time 17 minutes. Shabbir Hays, TRANSPORTATION JOB TITLES
--- NOTE | 2019-10-16 13:40 | NUR ---
OT NOTE Pt was seen this P.M. 1:1 for 20 minute OT session. Upon arrival pt was supine in bed. Pt identified by name and and had no complaints at this time. Pt transferred supine to sit EOB with SBA. Upon inital rise pt had complaints of feeling dizzy. Educated pt on visual fixation and after aprox 45 seconds pt had no other complaints. Sit to stand completed from bed level with Danny and use of w/w for UE support. Functional mobility was then completed to the bathroom with CGA and use of w/w, pt required min verbal prompts for walker safety. Pt transferred on/off standard commode with CGA and use of grab bar for UE support. Pt doffed and donned depends with Danny due to being very fearful of falling. pt then stood sink side while washing her hands with CGA for safety. Functional mobility was then completed back to the recliner. Due to quick onset of fatigue no other tasks completed at this time. Pt was left sitting upright in the recliner with call light in hand, tray table in place, and body alarm activated for safety. Continue with rec D/C plan to SNF. JOE Olivo/Maddie
[2019-10-16 16:00] VITALS: BP 116/50
--- NOTE | 2019-10-16 16:30 | NUR ---
PT SITTING UP IN RECLINER CHAIR. RESP-EASY AND REGULAR. NO C/O AT THIS TIME. CALL LIGHT IN REACH. BODY ALARM ON. SEE SHIFT ASSESSMENT.
--- NOTE | 2019-10-16 17:28 | NUR ---
WAITING FOR LAB TO COME TO DRAW VANC TROUGH BEFORE HANGING ANTIBIOTICS.
--- NOTE | 2019-10-16 17:57 | NUR ---
PT SON CALLED SAID THEY SPOKE WITH MOM AGREED TO HAVE PROCEDURE TOMORROW.
--- NOTE | 2019-10-16 18:21 | NUR ---
CALLED DR. PIMENTEL AWARE PT AGREED TO DO PARACENTESIS.
[2019-10-16 20:00] VITALS: BP 105/89
[2019-10-17] VITALS: BP 121/52
--- NOTE | 2019-10-17 03:36 | NUR ---
24 HR chart check completed.
[2019-10-17 07:02] LABS: BASO # 0.1 10*3/uL (0.0-0.1); BASO % 0.4 % (0.0-1.0); EOS % 0.3 % (1.0-4.0); HEMATOCRIT 31.6 % (37.0-47.0); LYMPH # 1.5 10*3/uL (1.3-4.4); LYMPH % 12.6 % (27.0-41.0); MEAN CELL VOLUME 79.4 fl (81.0-99.0); MEAN CORPUSCULAR HGB 25.1 pg (27.0-31.0); MEAN CORPUSCULAR HGB CONC 31.6 g/dl (33.0-37.0); MONO % 8.5 % (3.0-9.0); NEUT # 8.9 10*3/uL (2.3-7.9); PLATELET COUNT AUTOMATED 275 10*3/uL (130-400); RED BLOOD COUNT 3.98 10*6/uL (4.10-5.10); RED CELL DISTRI WIDTH 15.8 % (0-14.5); WHITE BLOOD COUNT 11.5 10*3/uL (4.8-10.8)
[2019-10-17 07:12] LABS: ALBUMIN 2.1 gm/dl (3.1-4.5); ALKALINE PHOSPHATASE 275 U/L (45-117); BUN 24 mg/dl (7-24); CHLORIDE 101 mmol/L (98-107); CREATININE 1.01 mg/dL (0.55-1.02); POTASSIUM 3.2 mmol/L (3.5-5.1); SGOT/AST 50 IU/L (3-35); SGPT/ALT 29 U/L (12-78); SODIUM 135 mmol/L (136-145); TOTAL PROTEIN 6.4 gm/dL (6.4-8.2)
[2019-10-17 08:00] VITALS: BP 116/60
--- NOTE | 2019-10-17 08:16 | NUR ---
OCCUPATIONAL THERAPY CO-SIGN I approve of the Occupational Therapy notes written above. ESTEFANI WILDE, OTR/L
--- NOTE | 2019-10-17 08:55 | NUR ---
OT NOTE Pt was seen this A.M. 1:1 for 25 minute OT session. Upon arrival pt was sitting upright in the recliner. Pt identified by name and and had complaints of having little to no voice, fatigued, generalized weakness, and was having bouts of dizziness however none this date so far pt reported. Pt doffed and donned B socks with supervision while seated. Sit to stand completed from chair level with CGA for safety and use of w/w for UE support. Functional mobility was then completed to the bathroom with CGA and use of w/w for UE support. Pt transferred on/off standard commode with CGA and use of grab bar. Clothing management completed with CGA and toilet hygiene completed with SBA, pt stated "you stay in here with me, I am very fearful of falling." Pt then stood sink side while washing her hands with CGA. After returning to the recliner pt completed BUE towel exercises with min resistance for 1 X 10 over all planes of motion to increase and restore maximum functional use. Pt was left sitting upright in the recliner with call light in hand, tray table in place, and phone in reach. Continue with rec D/C plan to SNF. ALKA Olivo
--- NOTE | 2019-10-17 10:22 | NUR ---
IN TO SEE PATIENT.
--- NOTE | 2019-10-17 10:37 | NUR ---
[facility] to [facility]. Once Medically stable can be discharge to [facility].
--- NOTE | 2019-10-17 10:52 | NUR ---
IN TO SEE PATIENT REGARDING CONSULT.
--- NOTE | 2019-10-17 11:00 | NUR ---
case management visits with patient, educated her that [facility] has accepted her at their facility. discharge arrangements will be made when patient is medically stable, case management will follow
--- NOTE | 2019-10-17 11:45 | NUR ---
PHYSICAL THERAPY Patient was resting comfortably supine in bed upon therapist arrival this am and reports receiving some very bad news regarding her Liver. Patient was very emotional this morning talking about her health issues, becoming "teary" eyed at times. Patient requested to not be seen at this time as she needed time to fully process this sudden information and remained in bed to rest. Therapist advised her Nurse of this request and will continue per POC as appropriate. Shabbir Hays, CLIENT EXECUTIVE
[2019-10-17 12:00] VITALS: BP 117/68
--- NOTE | 2019-10-17 12:43 | NUR ---
PATIENT TAKEN OFF FLOOR FOR SCHEDULED PROCEDURE.
--- NOTE | 2019-10-17 13:56 | NUR ---
PATIENT RETURNED TO ROOM FROM SCHEDULED PROCEDURE.
[2019-10-17] MEDS ORDERED: DOXYCYCLINE100 M3 PO (14:31)
[2019-10-17] MEDS ORDERED: ALDACTONE25 MG PO (15:02)
--- NOTE | 2019-10-17 15:29 | NUR ---
PATIENT C/O DIZZINESS. BP 100/50. NOTIFIED AND WILL BE IN TO SEE PATIENT.
[2019-10-17 16:00] VITALS: BP 110/50
--- NOTE | 2019-10-17 16:39 | NUR ---
THIS NURSE SPOKE WITH PATIENT AND . PATIENT WILL NO LONGER BE DISCHARGED THIS EVENING. PT DENIES ANY FURTHER DIZZINESS BUT IS C/O INDIGESTION. DISCHARGE TO BE RESCHEDULED FOR TOMORROW. NEW ORDERS TO BE ENTERED PER PHYSICIAN.
--- NOTE | 2019-10-17 16:46 | NUR ---
[facility] NOTIFED REGARDING PATIENT NO LONGER BEING DISCHARGED THIS EVENING.
--- NOTE | 2019-10-17 19:00 | NUR ---
ASSUMED CARE FOR THIS PT AT THIS TIME. NO C/O VOICED. PT RESTING QUIETLY IN BED. CALL LIGHT IN REACH.
[2019-10-17 20:00] VITALS: BP 117/41
[2019-10-18] VITALS: BP 115/49
--- NOTE | 2019-10-18 03:00 | NUR ---
PT AMBULATING IN HALLWAY W/2WW X1 ASSIST. PT WANTING TO SIT IN CHAIR AT THIS TIME. CALL LIGHT IN REACH. PERSONAL ALARM ON.L
[2019-10-18 07:09] LABS: BASO % 0.3 % (0.0-1.0); EOS % 0.3 % (1.0-4.0); HEMATOCRIT 29.9 % (37.0-47.0); LYMPH # 1.2 10*3/uL (1.3-4.4); LYMPH % 9.6 % (27.0-41.0); MEAN CELL VOLUME 79.3 fl (81.0-99.0); MEAN CORPUSCULAR HGB 24.9 pg (27.0-31.0); MEAN CORPUSCULAR HGB CONC 31.4 g/dl (33.0-37.0); MEAN PLATELET VOLUME 10.9 fl (9.6-12.3); MONO # 1.1 10*3/uL (0.1-1.0); MONO % 9.2 % (3.0-9.0); NEUT # 9.5 10*3/uL (2.3-7.9); NEUT % 79.3 % (47.0-73.0); PLATELET COUNT AUTOMATED 231 10*3/uL (130-400); RED BLOOD COUNT 3.77 10*6/uL (4.10-5.10); RED CELL DISTRI WIDTH 15.9 % (0-14.5)
[2019-10-18 07:26] LABS: BUN 23 mg/dl (7-24); CHLORIDE 104 mmol/L (98-107); CREATININE 0.81 mg/dL (0.55-1.02); POTASSIUM 3.9 mmol/L (3.5-5.1); SODIUM 136 mmol/L (136-145)
[2019-10-18 08:00] VITALS: BP 117/50
--- NOTE | 2019-10-18 08:52 | NUR ---
IN TO SEE PATIENT.
--- NOTE | 2019-10-18 10:33 | NUR ---
IN TO SEE PATIENT REGARDING DISCHARGE.
--- NOTE | 2019-10-18 11:10 | NUR ---
DAUGHTER HERE TO TRANSPORT PATIENT TO [facility].
--- NOTE | 2019-10-18 11:12 | NUR ---
REPORT GIVEN TO NURSE AT [facility].
--- NOTE | 2019-10-18 11:13 | NUR ---
Discharge instructions reviewed with patient/family. Patient receptive and verbalizes understanding. Follow-up care arranged. Written instructions given to patient/family. LETTY MENDOZA.
--- NOTE | 2019-10-19 07:50 | NUR ---
OCCUPATIONAL THERAPY CO-SIGN I approve of the Occupational Therapy notes written above. ESTEFANI WILDE, OTR/L
--- NOTE | 2019-10-19 08:03 | NUR ---
PHYSICAL THERAPY CO-SIGN I approve of the Physical Therapy notes written above. Zaria Jensen PT
== END 2019-10-18 11:13 | disposition other institution (70) | DRG 291 ==
LOC: ED 13:19 → 4NE 14:54 → EDHOLD 14:54 → 4NE 16:12
PROVIDERS: Emergency Medicine; Internal Medicine; Physician Assistant; Student in an Organized Health Care Education/Training Program; ADMIT Emergency Medicine
PROC: 0W9G3ZZ Drainage of Peritoneal Cavity, Percutaneous Approach (ICD-10-PCS; principal; 2019-10-17)
DX: I11.0 Hypertensive heart disease with heart failure (principal); E43 Unspecified severe protein-calorie malnutrition; L03.116 Cellulitis of left lower limb; R18.8 Other ascites; I50.33 Acute on chronic diastolic (congestive) heart failure; E83.42 Hypomagnesemia; Z66 Do not resuscitate; Z51.5 Encounter for palliative care; R73.9 Hyperglycemia, unspecified; I35.0 Nonrheumatic aortic (valve) stenosis; I48.0 Paroxysmal atrial fibrillation; K21.9 Gastro-esophageal reflux disease without esophagitis; D50.9 Iron deficiency anemia, unspecified; F41.1 Generalized anxiety disorder; I87.2 Venous insufficiency (chronic) (peripheral); K59.00 Constipation, unspecified; K74.60 Unspecified cirrhosis of liver; Z68.27 Body mass index [BMI] 27.0-27.9, adult; Z95.2 Presence of prosthetic heart valve; Z79.899 Other long term (current) drug therapy; Z87.891 Personal history of nicotine dependence; Z80.3 Family history of malignant neoplasm of breast; Z86.73 Personal history of transient ischemic attack (TIA), and cerebral infarction without residual deficits